=== PATIENT | female | born 1970 | race American Indian/Alaskan Native ===

== ENCOUNTER 2016-08-05 08:59 | Emergency (ER) | payer OTHER ==
[2016-08-05 09:43] VITALS: BP 148/89
--- NOTE | 2016-08-05 10:25 | Emergency Department Report ---
- General Chief Complaint: Upper Respiratory Infection Stated Complaint: SORE THROAT Time Seen by Provider: 08/05/16 10:21 Source: patient Mode of arrival: Ambulatory Limitations: No Limitations - History of Present Illness Initial Comments: 46-year-old female with a past medical history of diabetes comes in today for complaint of cold symptoms for about a week. Patient reports that it she's been dealing with nasal congestion now having sore throat in pain is going into her right ear. Patient states that her painful to swallow she denies any drooling she has been trying [id number] medicines such as [place] plus without any resolution. Patient is also requesting a refill on her glipizide 5 extended release 5 mg. Is currently on metformin 500 mg twice a day but has 1 refill left. Patient is currently looking for a primary care provider. - Related Data Previous Rx's Medication Instructions Recorded Last Taken Type glipiZIDE [glipiZIDE ER] 5 mg PO QAM #30 tab.er.24 05/27/16 Unknown Rx metFORMIN [Glucophage] 500 mg PO BID #60 tablet 05/27/16 Unknown Rx Cetirizine HCl [ZyrTEC] 10 mg PO QDAY #30 capsule 08/05/16 Unknown Rx Fluticasone [Flonase] 1 spray NS QDAY #1 bottle 08/05/16 Unknown Rx glipiZIDE [glipiZIDE ER] 5 mg PO QAM #30 tab.er.24 08/05/16 Unknown Rx Allergies Allergy/AdvReac Type Severity Reaction Status Date / Time codeine Allergy Nausea Verified 09/22/15 18:01 ED Review of Systems ROS: Stated complaint: SORE THROAT Other details as noted in HPI Constitutional: denies: chills, fever, weakness ENT: ear pain (right ear), throat pain, congestion (nasal) Respiratory: denies: cough, shortness of breath, wheezing Cardiovascular: denies: chest pain, palpitations ED Past Medical Hx - Past Medical History Hx Congestive Heart Failure: No Hx Diabetes: Yes Hx Sickle Cell Disease: No Hx Asthma: No Hx COPD: No - Surgical History Additional Surgical History: heart cath - Social History Smoking Status: Never Smoker Substance Use Type: None - Medications Home Medications: Home Medications Medication Instructions Recorded Confirmed Last Taken Type glipiZIDE [glipiZIDE ER] 5 mg PO QAM #30 tab.er.24 05/27/16 Unknown Rx metFORMIN [Glucophage] 500 mg PO BID #60 tablet 05/27/16 Unknown Rx Cetirizine HCl [ZyrTEC] 10 mg PO QDAY #30 capsule 08/05/16 Unknown Rx Fluticasone [Flonase] 1 spray NS QDAY #1 bottle 08/05/16 Unknown Rx glipiZIDE [glipiZIDE ER] 5 mg PO QAM #30 tab.er.24 08/05/16 Unknown Rx ED Physical Exam - General Limitations: No Limitations General appearance: alert, in no apparent distress - Head Head exam: Present: atraumatic, normocephalic - Eye Eye exam: Present: normal appearance - Expanded ENT Exam Expanded TM/Canal exam: Loss of Landmarks: Right TM (fluid behinf tm) Throat exam: Positive: normal inspection. Negative: tonsillar erythema, tonsillomegaly - Neck Neck exam: Present: normal inspection, full ROM. Absent: tenderness, lymphadenopathy - Respiratory Respiratory exam: Present: normal lung sounds bilaterally - Cardiovascular Cardiovascular Exam: Present: regular rate, normal rhythm, normal heart sounds ED Course Vital Signs 08/05/16 09:40 Temperature 97.8 F Pulse Rate 86 Respiratory 16 Rate Blood Pressure 148/89 O2 Sat by Pulse 100 Oximetry ED Medical Decision Making - Medical Decision Making Patient been evaluated by this provider in fast track. Based on physical examination which the patient for the URI. [id number] 1 spray to each nostril once a day. Discussed with patient that I will refill her Glipizide ER 5 mg qd. We will refer patient to outpatient clinic for further evaluation and management of her diabetes. Discussed with patient if her symptoms get worse if not improved in 3-4 days and return back to the ER for further evaluation patient verbalized understanding Critical care attestation.: If time is entered above; I have spent that time in minutes in the direct care of this critically ill patient, excluding procedure time. 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
== END 2016-08-05 10:43 | disposition home or self-care (01) ==
LOC: ED 08:59
DX: J09.X2 Influenza due to identified novel influenza A virus with other respiratory manifestations (principal); E11.9 Type 2 diabetes mellitus without complications; Z88.5 Allergy status to narcotic agent
CPT/HCPCS: 99282

== ENCOUNTER 2016-10-05 15:46 | Emergency (ER) | payer OTHER ==
[2016-10-05] MEDS ORDERED: MOTRIN PO ONE (22:14)
--- NOTE | 2016-10-05 22:14 | Emergency Department Report ---
ED Medical Clearance HPI - General Chief complaint: Medical Clearance Stated complaint: MED REFILLS Source: patient Mode of arrival: Ambulatory - History of Present Illness Initial comments: 46-year-old -[place] female coming in for just medication refills. Patient reports been out of her metformin and glipiZIDE last had a prescription from me this provider 08/05/2016. Patient reports she has now renewed her insurance and is now able to see a primary care provider but has not been able to get in to one as of yet. Patient reports that she did her Accu-Chek at home yesterday was approximately 250. She has no other concerns or complaints at this time Home medications: Previous Rx's Medication Instructions Recorded Last Taken Type glipiZIDE [glipiZIDE ER] 5 mg PO QAM #30 tab.er.24 05/27/16 Unknown Rx Cetirizine HCl [ZyrTEC] 10 mg PO QDAY #30 capsule 08/05/16 Unknown Rx Fluticasone [Flonase] 1 spray NS QDAY #1 bottle 08/05/16 Unknown Rx glipiZIDE [glipiZIDE ER] 5 mg PO QAM #60 tab.er.24 10/05/16 Unknown Rx metFORMIN [Glucophage] 500 mg PO BID #120 tablet 10/05/16 Unknown Rx Allergies/Adverse reactions: Allergies Allergy/AdvReac Type Severity Reaction Status Date / Time codeine Allergy Nausea Verified 09/22/15 18:01 ED Review of Systems ROS: Stated complaint: MED REFILLS Other details as noted in HPI Comment: All other systems reviewed and negative ED Past Medical Hx - Past Medical History Hx Congestive Heart Failure: No Hx Diabetes: Yes Hx Sickle Cell Disease: No Hx Asthma: No Hx COPD: No - Surgical History Additional Surgical History: heart cath - Social History Smoking Status: Never Smoker Substance Use Type: Alcohol - Medications Home Medications: Home Medications Medication Instructions Recorded Confirmed Last Taken Type glipiZIDE [glipiZIDE ER] 5 mg PO QAM #30 tab.er.24 05/27/16 Unknown Rx Cetirizine HCl [ZyrTEC] 10 mg PO QDAY #30 capsule 08/05/16 Unknown Rx Fluticasone [Flonase] 1 spray NS QDAY #1 bottle 08/05/16 Unknown Rx glipiZIDE [glipiZIDE ER] 5 mg PO QAM #60 tab.er.24 10/05/16 Unknown Rx metFORMIN [Glucophage] 500 mg PO BID #120 tablet 10/05/16 Unknown Rx ED Physical Exam - General Limitations: No Limitations General appearance: alert, in no apparent distress - Head Head exam: Present: atraumatic, normocephalic - Eye Eye exam: Present: normal appearance, PERRL Pupils: Present: normal accommodation - ENT ENT exam: Present: normal exam, mucous membranes moist - Respiratory Respiratory exam: Present: normal lung sounds bilaterally - Cardiovascular Cardiovascular Exam: Present: regular rate, normal rhythm, normal heart sounds - GI/Abdominal GI/Abdominal exam: Present: soft. Absent: distended, tenderness ED Course Vital Signs 10/05/16 16:23 Temperature 98.2 F Pulse Rate 91 H Respiratory 18 Rate Blood Pressure 140/90 O2 Sat by Pulse 100 Oximetry ED Medical Decision Making - Medical Decision Making Discussed with patient that we will refill her medication. We will give her 90 days. So she will have time to get into her primary care. Verbalized understanding ED Disposition Clinical Impression: Encounter for medication refill, Deficient knowledge of health care maintenance Diabetes mellitus type II, controlled Qualifiers: Diabetes mellitus complication status: without complication Disposition: DISCHARGED TO HOME OR SELFCARE Is pt being admited?: No Does the pt Need Aspirin: No Condition: Stable Additional Instructions: Very important for you to follow up with the primary care for chronic disease management. Referred her to a provider. Prescriptions: glipiZIDE [glipiZIDE ER] 5 mg PO QAM #60 tab.er.24 metFORMIN [Glucophage] 500 mg PO BID #120 tablet Referrals: PRIMARY CARE, [Primary Care Provider] - 3-5 Days [facility] [Provider Group] - 3-5 Days [facility] [Provider Group] - 3-5 Days Forms: Work/School Release Form(ED)
[2016-10-05] MEDS ORDERED: MOTRIN ONE (22:18)
[2016-10-06 00:11] VITALS: BP 132/86
== END 2016-10-05 22:25 | disposition home or self-care (01) ==
LOC: ED 15:46
DX: Z76.0 Encounter for issue of repeat prescription (principal); E11.9 Type 2 diabetes mellitus without complications; Z88.6 Allergy status to analgesic agent
CPT/HCPCS: 99282

== ENCOUNTER 2017-01-05 18:51 | Emergency (ER) | payer OTHER ==
[2017-01-05 19:40] VITALS: BP 158/97
--- NOTE | 2017-01-05 19:57 | Emergency Department Report ---
ED Recheck HPI - General Chief Complaint: Medical Clearance Stated Complaint: MED REFILLS Time Seen by Provider: 01/05/17 19:54 Source: patient Mode of arrival: Ambulatory Limitations: No Limitations - History of Present Illness Initial Comments: Patient here requesting a refill on her diabetic medications glipizide ER 5 mg every morning and Glucophage 500 mg by mouth twice a day. Patient says she doesn't have a primary care doctor and she comes to get a medication refill. She does sugar in triage was 148. She just got insurance told her I will refer her to outside [facility] because she needed to be followed by primary care physician for her diabetes. denies any urinary frequency and increased thirst. Complaint: medication refill request Onset/Timin -: days(s) Initial Visit For: other (here for med refill) Returns Today for: request for prescription Symptoms Since Prior Visit: no new symptoms Context: ran out of medication Associated Symptoms: none Treatments Prior to Arrival: other (na) - Related Data Previous Rx's Medication Instructions Recorded Last Taken Type Cetirizine HCl [ZyrTEC] 10 mg PO QDAY #30 capsule 08/05/16 Unknown Rx Fluticasone [Flonase] 1 spray NS QDAY #1 bottle 08/05/16 Unknown Rx glipiZIDE [glipiZIDE ER] 5 mg PO QAM #60 tab.er.24 10/05/16 Unknown Rx glipiZIDE [glipiZIDE ER] 5 mg PO QAM #30 tab.er.24 01/05/17 Unknown Rx metFORMIN [Glucophage] 500 mg PO BID #60 tablet 01/05/17 Unknown Rx Allergies Allergy/AdvReac Type Severity Reaction Status Date / Time codeine Allergy Nausea Verified 09/22/15 18:01 ED Review of Systems ROS: Stated complaint: MED REFILLS Other details as noted in HPI Comment: All other systems reviewed and negative Constitutional: no symptoms reported Eyes: denies: vision change Respiratory: no symptoms reported Cardiovascular: denies: chest pain, palpitations, edema, syncope Gastrointestinal: denies: abdominal pain, nausea, vomiting Genitourinary: denies: urgency, dysuria, frequency, hematuria, discharge Musculoskeletal: denies: back pain, joint swelling, arthralgia, myalgia Skin: denies: rash Neurological: denies: headache, weakness, numbness, paresthesias, confusion, abnormal gait, vertigo ED Past Medical Hx - Past Medical History Previous Medical History?: Yes Hx Congestive Heart Failure: No Hx Diabetes: Yes Hx Sickle Cell Disease: No Hx Asthma: No Hx COPD: No - Surgical History Past Surgical History?: Yes Additional Surgical History: heart cath - Family History Family history: diabetes, hypertension - Social History Smoking Status: Former Smoker Substance Use Type: None - Medications Home Medications: Home Medications Medication Instructions Recorded Confirmed Last Taken Type Cetirizine HCl [ZyrTEC] 10 mg PO QDAY #30 capsule 08/05/16 Unknown Rx Fluticasone [Flonase] 1 spray NS QDAY #1 bottle 08/05/16 Unknown Rx glipiZIDE [glipiZIDE ER] 5 mg PO QAM #60 tab.er.24 10/05/16 Unknown Rx glipiZIDE [glipiZIDE ER] 5 mg PO QAM #30 tab.er.24 01/05/17 Unknown Rx metFORMIN [Glucophage] 500 mg PO BID #60 tablet 01/05/17 Unknown Rx ED Physical Exam - General Limitations: No Limitations General appearance: alert, in no apparent distress - Head Head exam: Present: atraumatic, normocephalic, normal inspection - Eye Eye exam: Present: normal appearance, PERRL, EOMI Pupils: Present: normal accommodation - ENT ENT exam: Present: normal exam, normal orophraynx, mucous membranes moist - Neck Neck exam: Present: normal inspection, full ROM. Absent: tenderness, meningismus, lymphadenopathy - Respiratory Respiratory exam: Present: normal lung sounds bilaterally. Absent: respiratory distress, chest wall tenderness - Cardiovascular Cardiovascular Exam: Present: regular rate, normal rhythm, normal heart sounds - Extremities Exam Extremities exam: Present: normal inspection, full ROM, normal capillary refill. Absent: tenderness, pedal edema, joint swelling, calf tenderness - Neurological Exam Neurological exam: Present: alert, oriented X3, normal gait - Psychiatric Psychiatric exam: Present: normal affect, normal mood - Skin Skin exam: Present: warm, dry, intact, normal color. Absent: rash ED Course Vital Signs 01/05/17 19:36 Temperature 98.6 F Pulse Rate 70 Respiratory 18 Rate Blood Pressure 158/97 O2 Sat by Pulse 100 Oximetry - Reevaluation(s) Reevaluation #1: 01/05/17 20:08 Patient stable ED Recheck MDM - Medical Decision Making ED course: Patient here for medication refill on her diabetic medication. She has been coming here for refill medication does not have a primary care doctor and now she just got insurance she would like to be referred to one. Discussed with her that for her to [facility] and she is to call to schedule an appointment in the morning for new patient's physical and lab work to include hemoglobin A1c. I discussed with patient that she needs to have a primary care physician at [facility] to monitor her chronic medical problem. Patient is asymptomatic and her blood sugar in triage was 168. Medication refill for glipizide ER 5 mg every morning and Glucophage 500 mg by mouth twice a day. Critical care attestation.: If time is entered above; I have spent that time in minutes in the direct care of this critically ill patient, excluding procedure time. ED Disposition Clinical Impression: Encounter for medication refill Disposition: DC-01 TO HOME OR SELFCARE Is pt being admited?: No Does the pt Need Aspirin: No Condition: Stable Instructions: Diabetes Mellitus Type 2 in Adults (ED) Additional Instructions: Please increase water intake and to help to keep her blood sugar down. Please follow up with [facility] and discussed for primary care visit. Take medication as prescribed Prescriptions: glipiZIDE [glipiZIDE ER] 5 mg PO QAM #30 tab.er.24 metFORMIN [Glucophage] 500 mg PO BID #60 tablet Referrals: [facility] [Outside] - 2-3 Days Forms: Accompanied Note, Work/School Release Form(ED)
== END 2017-01-05 20:42 | disposition home or self-care (01) ==
LOC: ED 18:51
DX: Z76.0 Encounter for issue of repeat prescription (principal); E11.9 Type 2 diabetes mellitus without complications; Z87.891 Personal history of nicotine dependence; Z88.5 Allergy status to narcotic agent
CPT/HCPCS: 82962; 99282

== ENCOUNTER 2017-01-14 19:28 | Emergency (ER) | payer OTHER ==
[2017-01-14] MEDS ORDERED: TRIMOX PO ONE (23:01)
[2017-01-14] MEDS ORDERED: SUDAFED 12 HR PO PRN (23:01)
--- NOTE | 2017-01-14 23:17 | Emergency Department Report ---
HPI - General Chief Complaint: Headache Time Seen by Provider: 01/14/17 22:30 - HPI HPI: Patient is 46-year-old female presents to ED complaining of right-sided ear pain and headache times last night. Patient states she started experiencing some right-sided popping training type sound in the ears. Patient states she has some referred right-sided headache. She describes headache as aching and throbbing in nature about a 6 out of 10 in intensity. She denies fevers/chills/nausea/vomiting/abdominal pain/chest pain or shortness of breath/dizziness or blurred vision. ED Past Medical Hx - Past Medical History Previous Medical History?: Yes Hx Congestive Heart Failure: No Hx Diabetes: Yes Hx Sickle Cell Disease: No Hx Asthma: No Hx COPD: No - Surgical History Past Surgical History?: Yes Additional Surgical History: heart cath - Social History Smoking Status: Never Smoker Substance Use Type: Alcohol - Medications Home Medications: Home Medications Medication Instructions Recorded Confirmed Last Taken Type glipiZIDE [glipiZIDE ER] 5 mg PO QAM #60 tab.er.24 10/05/16 Unknown Rx glipiZIDE [glipiZIDE ER] 5 mg PO QAM #30 tab.er.24 01/05/17 Unknown Rx metFORMIN [Glucophage] 500 mg PO BID #60 tablet 01/05/17 Unknown Rx Amoxicillin [Trimox CAP] 500 mg PO BID #14 capsule 01/14/17 Unknown Rx Cetirizine HCl [ZyrTEC] 10 mg PO QDAY #30 capsule 01/14/17 Unknown Rx Fluticasone [Flonase] 1 spray NS QDAY #1 bottle 01/14/17 Unknown Rx ED Review of Systems ROS: Stated complaint: HEADACHE Other details as noted in HPI Constitutional: denies: chills, fever Eyes: denies: eye pain, eye discharge, vision change ENT: ear pain. denies: throat pain, dental pain, hearing loss Respiratory: denies: cough, shortness of breath, wheezing Cardiovascular: denies: chest pain, palpitations Endocrine: no symptoms reported Gastrointestinal: denies: abdominal pain, nausea, vomiting, diarrhea Genitourinary: denies: urgency, dysuria, discharge Musculoskeletal: denies: back pain, joint swelling, arthralgia Skin: denies: rash, lesions Neurological: headache. denies: weakness, numbness, paresthesias, confusion Psychiatric: denies: anxiety, depression Hematological/Lymphatic: denies: easy bleeding, easy bruising Physical Exam - Physical Exam Vital Signs: Vital Signs 01/14/17 19:33 Temperature 98.2 F Pulse Rate 88 Respiratory 16 Rate Blood Pressure 153/99 O2 Sat by Pulse 100 Oximetry Physical Exam: GENERAL: Alert and oriented x3, no apparent distress, Normal Gait, atraumatic. HEAD: Head is normocephalic and a-traumatic. EYES: Extra ocular muscles are intact. Pupils are equal, round, and reactive to light and accommodation. EARS: symetrical, atraumatic, non tender, ear canal clear and moderate cerumen, tympanic membrance non inflamed. Serous fluid behind the right tympanic membrane, maxillary sinuses tender to palpation, gross auditory nml bilaterally. NOSE: Nose symetrical, Nontender,Nares appeared normal. MOUTH:Mouth is well hydrated and without lesions. Tonsils nonerythematous or swollen, Uvula midline, Tongue not elevated. Mucous membranes are moist. Posterior pharynx clear, no exudate or lesions. Patent airways.. Maxillary sinus tenderness NECK: Supple. Non edematous, No carotid bruits. No lymphadenopathy or thyromegaly. No C-spine tenderness LUNGS: Symetrical with respiration, No wheezing, no rales or crackles, CTAB. HEART: S1, S2 present, regular rate and rhythm without murmur, no rubs, no gallops. Non tender to palpation NEUROLOGIC: The patient is cooperative with no focal neurologic deficits. Cranial nerves II through XII are grossly intact. Normal speech. SKIN: Warm and dry, No lesions, No ulceration or induration present. ED Course Vital Signs 01/14/17 19:33 Temperature 98.2 F Pulse Rate 88 Respiratory 16 Rate Blood Pressure 153/99 O2 Sat by Pulse 100 Oximetry ED Medical Decision Making - Medical Decision Making 46-year-old female presents with sinus infection, ED course: Patient received pseudoephedrine and amoxicillin Discussed with patient symptomatic relief as well as taking medication as prescribed Discussed the follow-up primary care physician. Discussed the patient's symptoms worsen to return to ED. Vital signs are normal patient is in no acute distress She is neurologically intact, alert and oriented 3, with discharge instructions given Critical care attestation.: If time is entered above; I have spent that time in minutes in the direct care of this critically ill patient, excluding procedure time. ED Disposition Clinical Impression: Sinusitis, acute, maxillary Qualifiers: Recurrence: recurrent Qualified Code(s): J01.01 - Acute recurrent maxillary sinusitis Disposition: TO HOME OR SELFCARE Is pt being admited?: No Does the pt Need Aspirin: No Condition: Stable Instructions: Sinusitis (ED) Prescriptions: Amoxicillin [Trimox CAP] 500 mg PO BID #14 capsule Cetirizine HCl [ZyrTEC] 10 mg PO QDAY #30 capsule Fluticasone [Flonase] 1 spray NS QDAY #1 bottle Referrals: PRIMARY CARE, [Primary Care Provider] - 3-5 Days [facility] [Outside] - 3-5 Days [facility] [Outside] - 3-5 Days Forms: Accompanied Note, Work/School Release Form(ED) Time of Disposition: 23:23
[2017-01-14 23:39] VITALS: BP 163/86
== END 2017-01-14 23:40 | disposition home or self-care (01) ==
LOC: ED 19:28
DX: J01.01 Acute recurrent maxillary sinusitis (principal); E11.9 Type 2 diabetes mellitus without complications
CPT/HCPCS: 99282

== ENCOUNTER 2017-05-02 16:11 | Emergency (ER) | payer SELFPAY ==
--- NOTE | 2017-05-02 22:00 | Emergency Department Report ---
HPI - General Chief Complaint: Medical Clearance Time Seen by Provider: 05/02/17 21:05 - HPI HPI: 46-year-old female presents today requesting a medication refill for her glipizide and metformin. Patient denies any other medical complaints. She states that she has been out of her glipizide 1 week and her last dose of metformin was this morning. Patient states that at time of arrival she did have a eduardo lucia, explaining her elevated blood glucose levels. Patient denies fever, chills, nausea, vomiting, chest pain, shortness of breath, abdominal pain, urinary symptoms. ED Past Medical Hx - Past Medical History Hx Congestive Heart Failure: No Hx Diabetes: Yes Hx Sickle Cell Disease: No Hx Asthma: No Hx COPD: No - Surgical History Additional Surgical History: heart cath - Social History Smoking Status: Never Smoker Substance Use Type: Alcohol - Medications Home Medications: Home Medications Medication Instructions Recorded Confirmed Last Taken Type glipiZIDE [glipiZIDE ER] 5 mg PO QAM #30 tab.er.24 01/05/17 Unknown Rx Amoxicillin [Trimox CAP] 500 mg PO BID #14 capsule 01/14/17 Unknown Rx Cetirizine HCl [ZyrTEC] 10 mg PO QDAY #30 capsule 01/14/17 Unknown Rx Fluticasone [Flonase] 1 spray NS QDAY #1 bottle 01/14/17 Unknown Rx glipiZIDE [glipiZIDE ER] 5 mg PO QAM #60 tab.er.24 05/02/17 Unknown Rx metFORMIN [Glucophage] 500 mg PO BID #120 tablet 05/02/17 Unknown Rx ED Review of Systems ROS: Stated complaint: BLOOD SUGAR HIGH, REFILL ON MEDS Other details as noted in HPI Constitutional: denies: chills, fever, malaise Eyes: denies: eye pain ENT: denies: ear pain, throat pain, congestion Respiratory: denies: cough, shortness of breath, wheezing Cardiovascular: denies: chest pain, palpitations Endocrine: no symptoms reported Gastrointestinal: denies: abdominal pain, nausea, vomiting Genitourinary: denies: urgency, dysuria, frequency, hematuria Skin: denies: rash Neurological: denies: headache, weakness, numbness, paresthesias Psychiatric: denies: anxiety, depression Physical Exam - Physical Exam Vital Signs: Vital Signs 05/02/17 17:41 Temperature 98 F Pulse Rate 82 Respiratory 16 Rate Blood Pressure 128/86 O2 Sat by Pulse 100 Oximetry Physical Exam: GENERAL: The patient is well-developed and well-nourished. Patient is in NAD. HEAD: Normocephalic. Atraumatic. NECK: Supple, nontender, without lymphadenopathy. No meningitic signs are noted. CHEST/LUNGS: Clear to auscultation throughout. HEART/CARDIOVASCULAR: Regular rate and rhythm. No murmurs, rubs or gallops. ABDOMEN: Abdomen is soft, nontender. Bowel sounds normoactive. No guarding or rebound tenderness. EXTREMITIES: No cyanosis, clubbing or edema. Peripheral pulses intact. Capillary refill less than 2 seconds. NEURO: Alert and oriented x 3. Normal gait. ED Course Vital Signs 05/02/17 17:41 Temperature 98 F Pulse Rate 82 Respiratory 16 Rate Blood Pressure 128/86 O2 Sat by Pulse 100 Oximetry ED Medical Decision Making - Lab Data Vital Signs 05/02/17 05/02/17 17:41 22:18 Temperature 98 F Pulse Rate 82 81 Respiratory 16 18 Rate Blood Pressure 128/86 142/90 O2 Sat by Pulse 100 100 Oximetry Lab Results 05/02/17 05/02/17 Range/Units 17:42 20:56 POC Glucose 363 H 274 H (70-105) - Medical Decision Making 46-year-old female presents today for a medication refill. Consulted with Dr. Taylor, who advised patient's medication refilled and for patient to follow up with her primary care provider. Patient is in no acute distress at this time. She will be discharged home and is encouraged to follow up with a primary care provider. She will be sent home on glipizide and metformin and is encouraged to return to the emergency room for any worsening symptoms. Critical care attestation.: If time is entered above; I have spent that time in minutes in the direct care of this critically ill patient, excluding procedure time. ED Disposition Clinical Impression: Medication refill Diabetes mellitus type II, controlled Qualifiers: Diabetes mellitus complication status: without complication Diabetes mellitus usp insulin use: without usp use Qualified Code(s): E11.9 - Type 2 diabetes mellitus without complications Disposition: TO HOME OR SELFCARE Is pt being admited?: No Does the pt Need Aspirin: No Condition: Stable Instructions: Diabetes Mellitus Type 2 in Adults (ED) Additional Instructions: Take medications as prescribed. Keep a blood glucose level record for reference. Follow-up with primary care provider. Return to the emergency department if symptoms worsen. Prescriptions: glipiZIDE [glipiZIDE ER] 5 mg PO QAM #60 tab.er.24 metFORMIN [Glucophage] 500 mg PO BID #120 tablet Referrals: PRIMARY CAREMD [Primary Care Provider] - 3-5 Days [facility] [Outside] - 3-5 Days PERLA LIN MD [Staff Physician] - 3-5 Days Forms: Accompanied Note, Work/School Release Form(ED) Time of Disposition: 22:00
[2017-05-02 22:39] VITALS: BP 142/90
== END 2017-05-02 22:58 | disposition home or self-care (01) ==
LOC: ED 16:11
DX: Z76.0 Encounter for issue of repeat prescription (principal); E11.9 Type 2 diabetes mellitus without complications
CPT/HCPCS: 82962; 99282

== ENCOUNTER 2017-10-01 17:21 | Emergency (ER) | payer OTHER ==
[2017-10-01 21:47] LABS: Bacteria,Urine 3+ /HPF (Negative); Bilirubin,Urine NEG (Negative); Blood,Urine SM (Negative); Color,Urine Yellow (Yellow); Protein,Urine <15 mg/dL mg/dL (Negative); Urobilinogen,Urine < 2.0 mg/dL (<2.0)
[2017-10-01 21:57] LABS: HCG Qualitative,Urine Negative (Negative)
--- NOTE | 2017-10-01 22:53 | Emergency Department Report ---
HPI - General Chief Complaint: Urogenital-Female Time Seen by Provider: 10/01/17 22:49 - HPI HPI: 47-year-old diabetic comes in reporting she ran out of her medicine for the last 2 days. Patient reports that she's been using the emergency room as her primary care provider. Patient also reports vaginal itching. Patient reports her last blood sugar at home was 277 blood sugar today fast track was 242. Patient reports that she is on metformin and glipizide. ED Past Medical Hx - Past Medical History Hx Congestive Heart Failure: No Hx Diabetes: Yes Hx Sickle Cell Disease: No Hx Asthma: No Hx COPD: No - Surgical History Additional Surgical History: heart cath - Social History Smoking Status: Never Smoker Substance Use Type: None - Medications Home Medications: Home Medications Medication Instructions Recorded Confirmed Last Taken Type glipiZIDE [glipiZIDE ER] 5 mg PO QAM #30 tab.er.24 01/05/17 Unknown Rx Amoxicillin [Trimox CAP] 500 mg PO BID #14 capsule 01/14/17 Unknown Rx Cetirizine HCl [ZyrTEC] 10 mg PO QDAY #30 capsule 01/14/17 Unknown Rx Fluticasone [Flonase] 1 spray NS QDAY #1 bottle 01/14/17 Unknown Rx Fluconazole [Diflucan TAB] 150 mg PO ONCE #1 tablet 10/01/17 Unknown Rx Nitrofurantoin Monohyd/M-Cryst 100 mg PO BID #20 capsule 10/01/17 Unknown Rx [Macrobid 100 mg Capsule] glipiZIDE [glipiZIDE ER] 5 mg PO QAM #15 tab.er.24 10/01/17 Unknown Rx metFORMIN [Glucophage] 500 mg PO BID #30 tablet 10/01/17 Unknown Rx ED Review of Systems ROS: Stated complaint: MED REFILL/BLOOD SUGAR HIGH Other details as noted in HPI Constitutional: denies: chills, fever Eyes: denies: eye pain, eye discharge, vision change ENT: denies: ear pain, throat pain Respiratory: denies: cough, shortness of breath, wheezing Cardiovascular: denies: chest pain, palpitations Endocrine: no symptoms reported Gastrointestinal: denies: abdominal pain, nausea, diarrhea Genitourinary: other (vaginal irritation). denies: urgency, dysuria, discharge Musculoskeletal: denies: back pain, joint swelling, arthralgia Skin: denies: rash, lesions Neurological: denies: headache, weakness, paresthesias Psychiatric: denies: anxiety, depression Hematological/Lymphatic: denies: easy bleeding, easy bruising Physical Exam - Physical Exam Vital Signs: Vital Signs 10/01/17 19:25 Temperature 97.6 F Pulse Rate 84 Respiratory 18 Rate Blood Pressure 161/95 O2 Sat by Pulse 99 Oximetry General: GENERAL: Alert and oriented x3, no apparent distress, Normal Gait, atraumatic. HEAD: Head is normocephalic and a-traumatic. EYES: Extra ocular muscles are intact. Pupils are equal, round, and reactive to light and accommodation. MOUTH:Mouth is well hydrated and without lesions. Tonsils nonerythematous or swollen, Uvula midline, Tongue not elevated. Mucous membranes are moist. Patent airways. EXTREMITIES/MUSCULOSKELETAL: No cyanosis, clubbing, rash, lesions or edema. Full ROM bilaterally. UE/LE Pulses 2+ bilaterally. LE and UE 5+ strength bilaterally NEUROLOGIC: No focal Deficit, Cranial nerves II through XII are grossly intact. No loss of sensation, No facial droop, Negative rhomberg. PSYCHIATRIC: Mood is congruent with affect, denies suicidal or homicidal ideations. SKIN: Warm and dry, No lesions, No ulceration or induration present ED Course Vital Signs 10/01/17 19:25 Temperature 97.6 F Pulse Rate 84 Respiratory 18 Rate Blood Pressure 161/95 O2 Sat by Pulse 99 Oximetry ED Medical Decision Making - Medical Decision Making Patient's been evaluated by this provider fast track. I discussed the patient that the emergency room is not a proper place for primary care. Also discussed the patient that the vaginal irritation I will treated with Diflucan. Review of her labs so that she has a urinary tract infection so I will treat her for that as well. Discussed the patient only give her 2 weeks' worth of medication she needs to follow-up with [facility]. Patient verbalized understanding. Critical care attestation.: If time is entered above; I have spent that time in minutes in the direct care of this critically ill patient, excluding procedure time. ED Disposition Clinical Impression: Diabetes 1.5, managed as type 2 UTI (urinary tract infection) Qualifiers: Urinary tract infection type: site unspecified Hematuria presence: without hematuria Qualified Code(s): N39.0 - Urinary tract infection, site not specified Disposition: TO HOME OR SELFCARE Is pt being admited?: No Does the pt Need Aspirin: No Condition: Stable Instructions: Diabetes Mellitus Type 2 in Adults (ED), Urinary Tract Infection in Women (ED) Additional Instructions: Please take medication as prescribed. It's very importantly to follow up with her primary care provider. They're certain testing needs to be done to be sure that your diabetes is managed properly. I haven referred you to [facility]. Prescriptions: Fluconazole [Diflucan TAB] 150 mg PO ONCE #1 tablet glipiZIDE [glipiZIDE ER] 5 mg PO QAM #15 tab.er.24 metFORMIN [Glucophage] 500 mg PO BID #30 tablet Nitrofurantoin Monohyd/M-Cryst [Macrobid 100 mg Capsule] 100 mg PO BID #20 capsule Referrals: ALEXYS MARTIN MD [Primary Care Provider] - 3-5 Days [facility] [Provider Group] - 3-5 Days [facility] [Provider Group] - 3-5 Days
[2017-10-01 23:11] VITALS: BP 147/92
== END 2017-10-01 23:08 | disposition home or self-care (01) ==
LOC: ED 17:21
DX: E11.9 Type 2 diabetes mellitus without complications (principal); N39.0 Urinary tract infection, site not specified
CPT/HCPCS: 81001; 81025; 82962; 87086; 99283

== ENCOUNTER 2017-11-28 10:39 | Inpatient (IN) | payer SELFPAY ==
[2017-11-28] MEDS ORDERED: NACL 0.9% 500 ML 500 ML IV ONE ×2 (10:43→10:51)
[2017-11-28] MEDS ORDERED: NACL 0.9% 1000 ML IV ONE (11:08)
[2017-11-28 11:12] LABS: Hematocrit 39.6 % (30.3-42.9); Hemoglobin 13.1 gm/dl (10.1-14.3); Mean Corpuscular HGB Conc 33 % (30-34); Mean Corpuscular Hemoglobin 28 pg (28-32); Mean Corpuscular Volume 86 fl (79-97); Platelet Count 300 K/mm3 (140-440); Red Blood Count 4.63 M/mm3 (3.65-5.03); Red Cell Distribution Width 12.9 % (13.2-15.2)
--- NOTE | 2017-11-28 11:13 | XRay Report ---
PORTABLE CHEST INDICATION: Possible sepsis. COMPARISON: 01/11/2014 FINDINGS: Portable, frontal chest radiograph demonstrates normal cardiomediastinal silhouette. Slight nonspecific prominence of lung markings centrally. No dense focal consolidation, pleural effusions or CHF. Intact bones. CONCLUSION: No acute significant chest process, as described. Thank you for the opportunity to participate in this patient's care. Possible sepsis.
[2017-11-28 11:22] LABS: INR 0.91 (0.87-1.13)
[2017-11-28 11:26] LABS: Alanine Aminotransferase 10 units/L (7-56); Albumin 4.1 g/dL (3.9-5); BUN/Creatinine Ratio 16; Blood Urea Nitrogen 8 mg/dL (7-17); Calcium 9.3 mg/dL (8.4-10.2); Hemolysis Index 0
--- NOTE | 2017-11-28 11:35 | Emergency Department Report ---
ED Fever HPI - General Chief Complaint: Fever Stated Complaint: ABD PAIN Time Seen by Provider: 11/28/17 11:07 Source: patient Exam Limitations: no limitations - History of Present Illness Timing/Duration: this morning Fever Severity/Quality: greater than 100.5 F Fever Therapy CERTIFIED PHARMACIST ASSISTANT: none Associated Symptoms: abdominal pain, nausea/vomiting. denies: shortness of breath ED Review of Systems ROS: Stated complaint: ABD PAIN Other details as noted in HPI Comment: All other systems reviewed and negative Constitutional: chills, fever Eyes: denies: vision change ENT: denies: ear pain Respiratory: denies: cough, shortness of breath Cardiovascular: denies: chest pain, palpitations Endocrine: no symptoms reported Gastrointestinal: abdominal pain, nausea, vomiting, constipation. denies: diarrhea Genitourinary: urgency, dysuria, frequency, hematuria Musculoskeletal: denies: back pain, joint swelling Skin: denies: rash, change in color Neurological: denies: headache, weakness, numbness Psychiatric: suicidal thoughts Hematological/Lymphatic: denies: easy bleeding, easy bruising ED Past Medical Hx - Past Medical History Hx Congestive Heart Failure: No Hx Diabetes: Yes Hx Sickle Cell Disease: No Hx Asthma: No Hx COPD: No - Surgical History Additional Surgical History: heart cath - Social History Smoking Status: Never Smoker Substance Use Type: None - Medications Home Medications: Home Medications Medication Instructions Recorded Confirmed Last Taken Type glipiZIDE [glipiZIDE ER] 5 mg PO QAM #30 tab.er.24 01/05/17 Unknown Rx Amoxicillin [Trimox CAP] 500 mg PO BID #14 capsule 01/14/17 Unknown Rx Cetirizine HCl [ZyrTEC] 10 mg PO QDAY #30 capsule 01/14/17 Unknown Rx Fluticasone [Flonase] 1 spray NS QDAY #1 bottle 01/14/17 Unknown Rx Fluconazole [Diflucan TAB] 150 mg PO ONCE #1 tablet 10/01/17 Unknown Rx Nitrofurantoin Monohyd/M-Cryst 100 mg PO BID #20 capsule 10/01/17 Unknown Rx [Macrobid 100 mg Capsule] glipiZIDE [glipiZIDE ER] 5 mg PO QAM #15 tab.er.24 10/01/17 Unknown Rx metFORMIN [Glucophage] 500 mg PO BID #30 tablet 10/01/17 Unknown Rx ED Physical Exam - General Limitations: No Limitations General appearance: alert, in no apparent distress - Head Head exam: Present: atraumatic, normocephalic, normal inspection - Eye Eye exam: Present: normal appearance, PERRL, EOMI Pupils: Present: normal accommodation - ENT ENT exam: Present: normal exam, normal orophraynx, mucous membranes moist - Neck Neck exam: Present: normal inspection, full ROM. Absent: tenderness, meningismus - Respiratory Respiratory exam: Present: normal lung sounds bilaterally, respiratory distress. Absent: wheezes, rhonchi - Cardiovascular Cardiovascular Exam: Present: normal rhythm, normal heart sounds - GI/Abdominal GI/Abdominal exam: Present: soft, tenderness (Right CVA Tenderness.), normal bowel sounds. Absent: guarding, rebound - Extremities Exam Extremities exam: Present: normal inspection, full ROM, normal capillary refill - Back Exam Back exam: Present: normal inspection, full ROM. Absent: tenderness - Neurological Exam Neurological exam: Present: alert, oriented X3, CN II-XII intact - Psychiatric Psychiatric exam: Present: normal affect, normal mood - Skin Skin exam: Present: warm, dry, intact, normal color ED Course Vital Signs 11/28/17 11/28/17 11/28/17 10:41 11:21 11:29 Temperature 101.2 F H 101.1 F H Pulse Rate 147 H 136 H Respiratory 18 Rate Blood Pressure 140/81 Blood Pressure 133/62 [Right] O2 Sat by Pulse 100 98 98 Oximetry 11/28/17 11/28/17 11/28/17 11:30 11:46 11:51 Temperature Pulse Rate 132 H 118 H Respiratory 19 16 18 Rate Blood Pressure 133/62 133/62 Blood Pressure [Right] O2 Sat by Pulse 96 99 Oximetry 11/28/17 11/28/17 11/28/17 12:00 12:23 12:30 Temperature Pulse Rate 114 H 116 H 118 H Respiratory 19 18 Rate Blood Pressure 116/78 116/78 116/78 Blood Pressure [Right] O2 Sat by Pulse 97 98 Oximetry 11/28/17 11/28/17 11/28/17 12:46 13:00 13:16 Temperature Pulse Rate 109 H 105 H 108 H Respiratory 19 23 16 Rate Blood Pressure 116/78 113/76 113/76 Blood Pressure [Right] O2 Sat by Pulse 97 98 97 Oximetry 11/28/17 11/28/1718 13:17 13:30 13:46 Temperature Pulse Rate 109 H 110 H Respiratory 18 20 24 Rate Blood Pressure 113/76 113/76 Blood Pressure [Right] O2 Sat by Pulse 99 95 Oximetry - Reevaluation(s) Reevaluation #1: 11/28/17 16:25 Patient was discussed by Dr. mackay on-call Dr. gomez. Will admit patient for further evaluation and management. ED Medical Decision Making - Lab Data Result diagrams: 11/28/17 10:46 11/28/17 10:46 - Radiology Data Radiology results: report reviewed, image reviewed - Medical Decision Making Fever. Sepsis. UTI. Abdominal pain Critical care attestation.: If time is entered above; I have spent that time in minutes in the direct care of this critically ill patient, excluding procedure time. ED Disposition Clinical Impression: Pyelonephritis UTI (urinary tract infection) Qualifiers: Urinary tract infection type: acute pyelonephritis Qualified Code(s): N10 - Acute pyelonephritis Sepsis Qualifiers: Sepsis type: sepsis due to unspecified organism Qualified Code(s): A41.9 - Sepsis, unspecified organism Fever Qualifiers: Fever type: unspecified Qualified Code(s): R50.9 - Fever, unspecified Abdominal pain Qualifiers: Abdominal location: right upper quadrant Qualified Code(s): R10.11 - Right upper quadrant pain Disposition: OP ADMIT IP TO THIS HOSP Is pt being admited?: Yes Does the pt Need Aspirin: No Condition: Stable Referrals: PRIMARY CARE, [Primary Care Provider] - 3-5 Days Time of Disposition: 15:02
[2017-11-28] MEDS ORDERED: ROCEPHIN/NS 2 GM/100 ML 2 GM/100 ML BAG IV ONE (11:40)
[2017-11-28] MEDS ORDERED: TYLENOL PO ONE (11:42)
[2017-11-28 11:47] LABS: Band Neutrophils # (Manual) 0.4 K/mm3; Basophils % (Manual) 0 % (0.0-1.8); Eosinophils % (Manual) 0 % (0.0-4.3); Total Cells Counted 100
[2017-11-28 11:48] LABS: Anisocytosis 1+; Ovalocytes Few; Platelet Estimate Cons; Poikilocytosis 1+
[2017-11-28] MEDS ORDERED: SUBLIMAZE IV ONE (12:00)
[2017-11-28] MEDS ORDERED: cefTRIAXone 2 GM in NACL 0.9% 20 ML IV ONE (12:00)
[2017-11-28] MEDS ORDERED: LEVAQUIN 750MG/150ML 750 MG/150 ML BAG IV SCH (12:00)
[2017-11-28 12:02] LABS: Bacteria,Urine 2+ /HPF (Negative); Bilirubin,Urine NEG (Negative); Blood,Urine LG (Negative); Color,Urine Yellow (Yellow); Urobilinogen,Urine < 2.0 mg/dL (<2.0); WBC,Urine > 182.0 /HPF (0.0-6.0)
[2017-11-28 12:03] LABS: HCG Qualitative,Urine Negative (Negative)
--- NOTE | 2017-11-28 14:53 | Cat Scan Report ---
FINAL REPORT EXAM: CT ABDOMEN PELVIS W CON HISTORY: abdominal pain TECHNIQUE: CT abdomen and pelvis performed. Images extend from diaphragm to pubic symphysis. Images were obtained after the administration of IV contrast. Oral contrast was administered. Axial images and coronal and sagittal reformatted images were obtained. PRIORS: None. FINDINGS: The visualized liver, spleen, pancreas, adrenal glands and left kidney demonstrate no significant abnormalities. There is some mild infiltration around the right kidney and in the right renal hilum. There is no hydronephrosis. Findings could represent upper urinary tract infection/pyelonephritis. Correlate clinically. There are no calcified gallstones seen. There is no abdominal aortic aneurysm. There is no evidence of intestinal obstruction. The appendix is normal. There are no abnormal fluid collections seen. There is no free intraperitoneal air. The bladder is unremarkable. There is no abnormal pelvic mass or collection seen. IMPRESSION: There is some mild infiltration around the right kidney and in the right renal hilum. This could reflect upper urinary tract infection/pyelonephritis. Correlate clinically.
[2017-11-28] MEDS ORDERED: ZOFRAN IV PRN (23:34)
[2017-11-28] MEDS ORDERED: PERCOCET 5/325 PO PRN (23:34)
[2017-11-28] MEDS ORDERED: AMBIEN PO PRN (23:34)
--- NOTE | 2017-11-28 23:42 | History and Physical Report ---
History of Present Illness Date of examination: 11/28/17 Date of admission: 11/28/17 16:26 Chief complaint: Chief complaint: Fever of 1 day duration Dysuria 1 day duration History of present illness: History of Present Illness: 47-year-old -[place] female with history of diabetes comes in for fever since one day. Fever of 100.5. Patient also has dysuria and some flank pain. Fever chills present. No shortness of breath present. Generalized weakness present. Abdominal pain especially right flank 5/10. Past Medical History Hx Congestive Heart Failure: No Hx Diabetes: Yes Hx Sickle Cell Disease: No Hx Asthma: No Hx COPD: No - Surgical History Additional Surgical History: heart cath - Social History Smoking Status: Never Smoker Substance Use Type: None - Medications Home Medications: Home Medications Medication Instructions Recorded Confirmed Last Taken Type glipiZIDE [glipiZIDE ER] 5 mg PO QAM #30 tab.er.24 01/05/17 Unknown Rx Amoxicillin [Trimox CAP] 500 mg PO BID #14 capsule 01/14/17 Unknown Rx Cetirizine HCl [ZyrTEC] 10 mg PO QDAY #30 capsule 01/14/17 Unknown Rx Fluticasone [Flonase] 1 spray NS QDAY #1 bottle 01/14/17 Unknown Rx Fluconazole [Diflucan TAB] 150 mg PO ONCE #1 tablet 10/01/17 Unknown Rx Nitrofurantoin Monohyd/M-Cryst 100 mg PO BID #20 capsule 10/01/17 Unknown Rx [Macrobid 100 mg Capsule] glipiZIDE [glipiZIDE ER] 5 mg PO QAM #15 tab.er.24 10/01/17 Unknown Rx metFORMIN [Glucophage] 500 mg PO BID #30 tablet 10/01/17 Unknown Rx Review of Systems ROS: Stated complaint: ABD PAIN Other details as noted in HPI Comment: All other systems reviewed and negative Constitutional: chills, fever Eyes: denies: vision change ENT: denies: ear pain Respiratory: denies: cough, shortness of breath Cardiovascular: denies: chest pain, palpitations Endocrine: no symptoms reported Gastrointestinal: abdominal pain, nausea, vomiting, constipation. denies: diarrhea Genitourinary: urgency, dysuria, frequency, hematuria Musculoskeletal: denies: back pain, joint swelling Skin: denies: rash, change in color Neurological: denies: headache, weakness, numbness Psychiatric: suicidal thoughts Hematological/Lymphatic: denies: easy bleeding, easy bruising Medications and Allergies Allergies Allergy/AdvReac Type Severity Reaction Status Date / Time codeine Allergy Nausea Verified 09/22/15 18:01 Home Medications Medication Instructions Recorded Confirmed Last Taken Type glipiZIDE [glipiZIDE ER] 5 mg PO QAM #15 tab.er.24 10/01/17 11/28/17 Unknown Rx metFORMIN [Glucophage] 1,000 mg PO BID 11/28/17 11/28/17 Unknown History Active Meds: Active Medications Acetaminophen (Tylenol) 650 mg PO Q4H PRN PRN Reason: Pain MILD(1-3)/Fever >100.5/LARIOS Glipizide (Glucotrol Xl) 5 mg PO QAM YONATAN Levofloxacin/Dextrose (Levaquin 750mg/150ml) 750 mg in 150 mls @ 100 mls/hr IV Q24HR YONATAN; Protocol Last Infusion: 11/28/17 13:52 Dose: Infused Ceftriaxone Sodium (Rocephin/Ns 2 Gm/100 Ml) 2 gm in 100 mls @ 200 mls/hr IV Q24HR YONATAN; Protocol Sodium Chloride (Nacl 0.9% 1000 Ml) 1,000 mls @ 75 mls/hr IV DIRECT YONATAN Metformin HCl (Glucophage) 1,000 mg PO BID YONATAN Morphine Sulfate (Morphine) 2 mg IV Q4H PRN PRN Reason: Pain, Moderate (4-6) Ondansetron HCl (Zofran) 4 mg IV Q8H PRN PRN Reason: Nausea And Vomiting Oxycodone/Acetaminophen (Percocet 5/325) 1 tab PO Q6H PRN PRN Reason: Pain, Moderate (4-6) Sodium Chloride (Sodium Chloride Flush Syringe 10 Ml) 10 ml IV BID YONATAN Sodium Chloride (Sodium Chloride Flush Syringe 10 Ml) 10 ml IV PRN PRN PRN Reason: LINE FLUSH Zolpidem Tartrate (Ambien) 5 mg PO QHS PRN PRN Reason: Insomnia Exam - Physical Exam Narrative exam: Lying in bed in some discomfort - Constitutional Vitals: Temp Pulse Resp BP Pulse Ox 97.8 F 78 16 149/88 98 11/28/17 18:11 11/28/17 18:11 11/28/17 18:11 11/28/17 18:11 11/28/17 18:11 General appearance: Present: no acute distress, mild distress, well-nourished - EENT Eyes: Present: PERRL ENT: hearing intact, clear oral mucosa - Neck Neck: Present: supple, normal ROM - Respiratory Respiratory effort: normal Respiratory: bilateral: CTA - Cardiovascular Heart rate: 86 Rhythm: regular Heart Sounds: Present: S1 & S2. Absent: rub, click - Extremities Extremities: no ischemia, pulses intact, pulses symmetrical, No edema Peripheral Pulses: within normal limits - Abdominal General gastrointestinal: Present: soft, non-tender, non-distended, normal bowel sounds Localized gastrointestinal: tender: suprapubic (right flank tenderness) Female genitourinary: Present: normal - Rectal Rectal Exam: deferred - Integumentary Integumentary: Present: clear, warm, dry - Musculoskeletal Musculoskeletal: gait normal, strength equal bilaterally - Psychiatric Psychiatric: appropriate mood/affect, intact judgment & insight - Neurologic Neurologic: CNII-XII intact, moves all extremities - Allied Health Allied health notes reviewed: nursing, case management Results - Labs CBC & Chem 7: 11/28/17 10:46 11/28/17 10:46 Labs: Laboratory Last Values WBC 10.6 K/mm3 (4.5-11.0) 11/28/17 10:46 RBC 4.63 M/mm3 (3.65-5.03) 11/28/17 10:46 Hgb 13.1 gm/dl (10.1-14.3) 11/28/17 10:46 Hct 39.6 % (30.3-42.9) 11/28/17 10:46 MCV 86 fl (79-97) 11/28/17 10:46 MCH 28 pg (28-32) 11/28/17 10:46 MCHC 33 % (30-34) 11/28/17 10:46 RDW 12.9 % (13.2-15.2) L 11/28/17 10:46 Plt Count 300 K/mm3 (140-440) 11/28/17 10:46 Add Manual Diff Complete 11/28/17 10:46 Total Counted 100 11/28/17 10:46 Seg Neuts % (Manual) 86.0 % (40.0-70.0) H 11/28/17 10:46 Band Neutrophils % 4.0 % 11/28/17 10:46 Lymphocytes % (Manual) 8.0 % (13.4-35.0) L 11/28/17 10:46 Reactive Lymphs % (Man) 0 % 11/28/17 10:46 Monocytes % (Manual) 2.0 % (0.0-7.3) 11/28/17 10:46 Eosinophils % (Manual) 0 % (0.0-4.3) 11/28/17 10:46 Basophils % (Manual) 0 % (0.0-1.8) 11/28/17 10:46 Metamyelocytes % 0 % 11/28/17 10:46 Myelocytes % 0 % 11/28/17 10:46 Promyelocytes % 0 % 11/28/17 10:46 Blast Cells % 0 % 11/28/17 10:46 Nucleated RBC % Not Reportable 11/28/17 10:46 Seg Neutrophils # Man 9.1 K/mm3 (1.8-7.7) H 11/28/17 10:46 Band Neutrophils # 0.4 K/mm3 11/28/17 10:46 Lymphocytes # (Manual) 0.8 K/mm3 (1.2-5.4) L 11/28/17 10:46 Abs React Lymphs (Man) 0.0 K/mm3 11/28/17 10:46 Monocytes # (Manual) 0.2 K/mm3 (0.0-0.8) 11/28/17 10:46 Eosinophils # (Manual) 0.0 K/mm3 (0.0-0.4) 11/28/17 10:46 Basophils # (Manual) 0.0 K/mm3 (0.0-0.1) 11/28/17 10:46 Metamyelocytes # 0.0 K/mm3 11/28/17 10:46 Myelocytes # 0.0 K/mm3 11/28/17 10:46 Promyelocytes # 0.0 K/mm3 11/28/17 10:46 Blast Cells # 0.0 K/mm3 11/28/17 10:46 WBC Morphology Not Reportable 11/28/17 10:46 Hypersegmented Neuts Not Reportable 11/28/17 10:46 Hyposegmented Neuts Not Reportable 11/28/17 10:46 Hypogranular Neuts Not Reportable 11/28/17 10:46 Smudge Cells Not Reportable 11/28/17 10:46 Toxic Granulation Not Reportable 11/28/17 10:46 Toxic Vacuolation Not Reportable 11/28/17 10:46 Dohle Bodies Not Reportable 11/28/17 10:46 Pelger-Huet Anomaly Not Reportable 11/28/17 10:46 Marco Rods Not Reportable 11/28/17 10:46 Platelet Estimate Cons 11/28/17 10:46 Clumped Platelets Not Reportable 11/28/17 10:46 Plt Clumps, EDTA Not Reportable 11/28/17 10:46 Large Platelets Not Reportable 11/28/17 10:46 Giant Platelets Not Reportable 11/28/17 10:46 Platelet Satelliting Not Reportable 11/28/17 10:46 Plt Morphology Comment Not Reportable 11/28/17 10:46 RBC Morphology Not Reportable 11/28/17 10:46 Dimorphic RBCs Not Reportable 11/28/17 10:46 Polychromasia Not Reportable 11/28/17 10:46 Hypochromasia Not Reportable 11/28/17 10:46 Poikilocytosis 1+ 11/28/17 10:46 Anisocytosis 1+ 11/28/17 10:46 Microcytosis Not Reportable 11/28/17 10:46 Macrocytosis Not Reportable 11/28/17 10:46 Spherocytes Not Reportable 11/28/17 10:46 Pappenheimer Bodies Not Reportable 11/28/17 10:46 Sickle Cells Not Reportable 11/28/17 10:46 Target Cells Not Reportable 11/28/17 10:46 Tear Drop Cells Not Reportable 11/28/17 10:46 Ovalocytes Few 11/28/17 10:46 Helmet Cells Not Reportable 11/28/17 10:46 Luis-[place] Bodies Not Reportable 11/28/17 10:46 [place] Rings Not Reportable 11/28/17 10:46 [place] Cells Not Reportable 11/28/17 10:46 Bite Cells Not Reportable 11/28/17 10:46 Crenated Cell Not Reportable 11/28/17 10:46 Elliptocytes Few 11/28/17 10:46 Acanthocytes (Spur) Not Reportable 11/28/17 10:46 Rouleaux Not Reportable 11/28/17 10:46 Hemoglobin C Crystals Not Reportable 11/28/17 10:46 Schistocytes Not Reportable 11/28/17 10:46 Malaria parasites Not Reportable 11/28/17 10:46 Clint Bodies Not Reportable 11/28/17 10:46 Hem Pathologist Commnt No 11/28/17 10:46 PT 12.7 Sec. (12.2-14.9) 11/28/17 10:46 INR 0.91 (0.87-1.13) 11/28/17 10:46 VBG pH 7.534 (7.320-7.420) H 11/28/17 10:46 Sodium 136 mmol/L (137-145) L 11/28/17 10:46 Potassium 4.2 mmol/L (3.6-5.0) 11/28/17 10:46 Chloride 94.8 mmol/L (98-107) L 11/28/17 10:46 Carbon Dioxide 24 mmol/L (22-30) 11/28/17 10:46 Anion Gap 21 mmol/L 11/28/17 10:46 BUN 8 mg/dL (7-17) 11/28/17 10:46 Creatinine 0.5 mg/dL (0.7-1.2) L 11/28/17 10:46 Estimated GFR > 60 ml/min 11/28/17 10:46 BUN/Creatinine Ratio 16 % 11/28/17 10:46 Glucose 247 mg/dL (65-100) H 11/28/17 10:46 POC Glucose 218 (70-105) H 11/28/17 21:40 Lactic Acid 1.50 mmol/L (0.7-2.0) 11/28/17 14:43 Calcium 9.3 mg/dL (8.4-10.2) 11/28/17 10:46 Total Bilirubin 1.20 mg/dL (0.1-1.2) 11/28/17 10:46 AST 11 units/L (5-40) 11/28/17 10:46 ALT 10 units/L (7-56) 11/28/17 10:46 Alkaline Phosphatase 95 units/L (35-129) 11/28/17 10:46 Total Protein 7.5 g/dL (6.3-8.2) 11/28/17 10:46 Albumin 4.1 g/dL (3.9-5) 11/28/17 10:46 Albumin/Globulin Ratio 1.2 % 11/28/17 10:46 Urine Color Yellow (Yellow) 11/28/17 11:37 Urine Turbidity Cloudy (Clear) 11/28/17 11:37 Urine pH 7.0 (5.0-7.0) 11/28/17 11:37 Ur Specific [place] 1.013 (1.003-1.030) 11/28/17 11:37 Urine Protein 100 mg/dl mg/dL (Negative) 11/28/17 11:37 Urine Glucose (UA) >=500 mg/dL (Negative) 11/28/17 11:37 Urine Ketones Neg mg/dL (Negative) 11/28/17 11:37 Urine Blood Lg (Negative) 11/28/17 11:37 Urine Nitrite Neg (Negative) 11/28/17 11:37 Urine Bilirubin Neg (Negative) 11/28/17 11:37 Urine Urobilinogen < 2.0 mg/dL (<2.0) 11/28/17 11:37 Ur Leukocyte Esterase Lg (Negative) 11/28/17 11:37 Urine WBC (Auto) > 182.0 /HPF (0.0-6.0) H 11/28/17 11:37 Urine RBC (Auto) 154.0 /HPF (0.0-6.0) 11/28/17 11:37 Urine Bacteria (Auto) 2+ /HPF (Negative) 11/28/17 11:37 Urine HCG, Qual Negative (Negative) 11/28/17 11:49 Blood Type O POSITIVE 11/28/17 11:27 Antibody Screen Negative 11/28/17 11:27 Short CBC 11/28/17 Range/Units 10:46 WBC 10.6 (4.5-11.0) K/mm3 Hgb 13.1 (10.1-14.3) gm/dl Hct 39.6 (30.3-42.9) % Plt Count 300 (140-440) K/mm3 BMP 11/28/17 10:46 Sodium 136 L Potassium 4.2 Chloride 94.8 L Carbon Dioxide 24 BUN 8 Creatinine 0.5 L Glucose 247 H Calcium 9.3 Liver Function 11/28/17 Range/Units 10:46 Total Bilirubin 1.20 (0.1-1.2) mg/dL AST 11 (5-40) units/L ALT 10 (7-56) units/L Alkaline Phosphatase 95 (35-129) units/L Albumin 4.1 (3.9-5) g/dL Urine 11/28/17 Range/Units 11:37 Urine Color Yellow (Yellow) Urine pH 7.0 (5.0-7.0) Ur Specific [place] 1.013 (1.003-1.030) Urine Protein 100 mg/dl (Negative) mg/dL Urine Glucose (UA) >=500 (Negative) mg/dL - Imaging and Cardiology Imaging and Cardiology: CT abdomen and pelvis IMPRESSION: There is some mild infiltration around the right kidney and in the right renal hilum. This could reflect upper urinary tract infection/ pyelonephritis. Correlate clinically. Assessment and Plan Advance Directives: Yes (full code) VTE prophylaxis?: Chemical Plan of care discussed with patient/family: Yes - Patient Problems (1) Sepsis Current Visit: Yes Status: Acute Qualifiers: Sepsis type: sepsis due to unspecified organism Qualified Code(s): A41.9 - Sepsis, unspecified organism Plan to address problem: Patient meets sepsis criteria Lactic acid high Because of the urinary tract infection and pyelonephritis Patient initiated on IV Rocephin 2 g IV piggyback every 24 (2) Pyelonephritis Current Visit: Yes Status: Acute Plan to address problem: IV Rocephin and IV fluids for now. Pending urine cultures and blood cultures (3) Hyponatremia Current Visit: Yes Status: Acute Plan to address problem: mild should correct with IV fluids (4) Type 2 diabetes mellitus Current Visit: Yes Status: Chronic Qualifiers: Diabetes mellitus intermediate teacher insulin use: without senior living use Plan to address problem: Continue oral hypoglycemics and coverage. (5) DVT prophylaxis Current Visit: Yes Status: Acute Plan to address problem: heparin subcutaneously GI prophylaxis famotidine initiated
[2017-11-28] MEDS ORDERED: D5NS 1,000 ML IV SCH (23:45)
[2017-11-29] MEDS: TYLENOL PO PRN (00:16)
[2017-11-29] MEDS: NACL 0.9% 1000 ML 1,000 ML IV SCH ×2 (00:17→14:06)
[2017-11-29] MEDS: SODIUM CHLORIDE FLUSH SYRINGE 10 ML IV PRN ×2 (00:18→05:45)
[2017-11-29] MEDS: MORPHINE IV PRN ×4 (05:44→23:10)
[2017-11-29] MEDS: HumaLOG SUB-Q SCH ×4 (07:30→23:58)
[2017-11-29 07:43] LABS: Hematocrit 33.9 % (30.3-42.9); Hemoglobin 10.9 gm/dl (10.1-14.3); Mean Corpuscular HGB Conc 32 % (30-34); Mean Corpuscular Hemoglobin 28 pg (28-32); Mean Corpuscular Volume 86 fl (79-97); Mean Platelet Volume 8.2 fl (6-12); Platelet Count 273 K/mm3 (140-440); Red Blood Count 3.96 M/mm3 (3.65-5.03); Red Cell Distribution Width 12.6 % (13.2-15.2)
[2017-11-29 07:47] LABS: Alanine Aminotransferase 8 units/L (7-56); Albumin 3.1 g/dL (3.9-5); BUN/Creatinine Ratio 14; Blood Urea Nitrogen 7 mg/dL (7-17); Calcium 8.1 mg/dL (8.4-10.2); Hemolysis Index 1
[2017-11-29] MEDS: GLUCOPHAGE PO SCH ×2 (08:00→17:00)
[2017-11-29] MEDS: GLUCOTROL XL PO SCH (08:00)
[2017-11-29 08:27] LABS: Band Neutrophils # (Manual) 0.4 K/mm3; Basophils % (Manual) 0 % (0.0-1.8); Eosinophils % (Manual) 0 % (0.0-4.3); Total Cells Counted 100
[2017-11-29 08:28] LABS: Anisocytosis 1+; Ovalocytes Few; Platelet Estimate Consistent w Auto
[2017-11-29] MEDS: SODIUM CHLORIDE FLUSH SYRINGE 10 ML IV SCH ×2 (09:59→23:11)
[2017-11-29] MEDS ORDERED: ROCEPHIN/NS 2 GM/100 ML 2 GM/100 ML BAG IV SCH (10:00)
[2017-11-29] MEDS: cefTRIAXone 2 GM in NACL 0.9% 20 ML IV SCH (10:00)
--- NOTE | 2017-11-29 12:34 | Progress Note ---
Assessment and Plan Assessment and plan: Patient is a 47 yo woman with a history of type 2 DM who presented with dysuria and hematuria. She went to [facility] earlier in the week for same things but no abx were given. CT abdomen and pelvis w/ contrast IMPRESSION: There is some mild infiltration around the right kidney and in the right renal hilum. This could reflect upper urinary tract infection/pyelonephritis. Correlate clinically. -Sepsis Patient meets sepsis criteria Lactic acid high Because of the urinary tract infection and pyelonephritis Patient initiated on IV Rocephin 2 g IV piggyback every 24 -Pyelonephritis Current Visit: Yes Status: Acute Plan to address problem: IV Rocephin and IV fluids for now. Pending urine cultures and blood cultures - Hyponatremia Current Visit: Yes Status: Acute Plan to address problem: mild should correct with IV fluids -Type 2 diabetes mellitus Current Visit: Yes Status: Chronic Qualifiers: Diabetes mellitus [facility] insulin use: without [facility] use Plan to address problem: Continue oral hypoglycemics and coverage. - DVT prophylaxis Current Visit: Yes Status: Acute Plan to address problem: heparin subcutaneously GI prophylaxis famotidine initiated History Interval history: Patient was seen and examined. Follow-up on current diagnosis of flank pains. Overnight uneventful. Patient denies any chest pain, shortness breath, nausea/ vomiting or severe headaches. Imaging, nursing note, chart, labs and old chart reviewed. Discussed with patient. Hospitalist Physical - Physical exam Narrative exam: GEN: WDWN, NAD, Awake, Alert, Orientated x 3 HEENT: NCAT, EOMI, PERRL, OP Clear NECK: supple, no adenopathy, no thyromegaly, no JVD CVS/HEART: regular tachy, normal S1S2, pulses present bilaterally CHEST/LUNGS: CTA B, Symmetrical chest expansion, good air entry bilaterally GI/Abdomen: soft, NTND, good bowel sounds, no guarding or rebound /Bladder: no suprapubic tenderness, + right sided CVA tenderness but or no paraspinal tenderness EXT/Skin: no c/c/e, no obvious rash MSK: FROM x 4 Neuro: CN 2-12 grossly intact, no new focal deficits Psych: calm - Constitutional Vitals: Temp Pulse Resp BP Pulse Ox 99.6 F 117 H 20 132/69 93 11/29/17 00:00 11/29/17 07:34 11/29/17 07:34 11/29/17 07:34 11/29/17 07:34 General appearance: Present: no acute distress, mild distress, well-nourished Results - Labs CBC & Chem 7: 11/29/17 06:57 11/29/17 06:57 Labs: Laboratory Last Values WBC 18.6 K/mm3 (4.5-11.0) H 11/29/17 06:57 RBC 3.96 M/mm3 (3.65-5.03) 11/29/17 06:57 Hgb 10.9 gm/dl (10.1-14.3) 11/29/17 06:57 Hct 33.9 % (30.3-42.9) 11/29/17 06:57 MCV 86 fl (79-97) 11/29/17 06:57 MCH 28 pg (28-32) 11/29/17 06:57 MCHC 32 % (30-34) 11/29/17 06:57 RDW 12.6 % (13.2-15.2) L 11/29/17 06:57 Plt Count 273 K/mm3 (140-440) 11/29/17 06:57 Add Manual Diff Complete 11/29/17 06:57 Total Counted 100 11/29/17 06:57 Seg Neuts % (Manual) 91.0 % (40.0-70.0) H 11/29/17 06:57 Band Neutrophils % 2.0 % 11/29/17 06:57 Lymphocytes % (Manual) 4.0 % (13.4-35.0) L 11/29/17 06:57 Reactive Lymphs % (Man) 0 % 11/29/17 06:57 Monocytes % (Manual) 3.0 % (0.0-7.3) 11/29/17 06:57 Eosinophils % (Manual) 0 % (0.0-4.3) 11/29/17 06:57 Basophils % (Manual) 0 % (0.0-1.8) 11/29/17 06:57 Metamyelocytes % 0 % 11/29/17 06:57 Myelocytes % 0 % 11/29/17 06:57 Promyelocytes % 0 % 11/29/17 06:57 Blast Cells % 0 % 11/29/17 06:57 Nucleated RBC % Not Reportable 11/29/17 06:57 Seg Neutrophils # Man 16.9 K/mm3 (1.8-7.7) H 11/29/17 06:57 Band Neutrophils # 0.4 K/mm3 11/29/17 06:57 Lymphocytes # (Manual) 0.7 K/mm3 (1.2-5.4) L 11/29/17 06:57 Abs React Lymphs (Man) 0.0 K/mm3 11/29/17 06:57 Monocytes # (Manual) 0.6 K/mm3 (0.0-0.8) 11/29/17 06:57 Eosinophils # (Manual) 0.0 K/mm3 (0.0-0.4) 11/29/17 06:57 Basophils # (Manual) 0.0 K/mm3 (0.0-0.1) 11/29/17 06:57 Metamyelocytes # 0.0 K/mm3 11/29/17 06:57 Myelocytes # 0.0 K/mm3 11/29/17 06:57 Promyelocytes # 0.0 K/mm3 11/29/17 06:57 Blast Cells # 0.0 K/mm3 11/29/17 06:57 WBC Morphology Not Reportable 11/29/17 06:57 Hypersegmented Neuts Not Reportable 11/29/17 06:57 Hyposegmented Neuts Not Reportable 11/29/17 06:57 Hypogranular Neuts Not Reportable 11/29/17 06:57 Smudge Cells Not Reportable 11/29/17 06:57 Toxic Granulation Not Reportable 11/29/17 06:57 Toxic Vacuolation Not Reportable 11/29/17 06:57 Dohle Bodies Not Reportable 11/29/17 06:57 Pelger-Huet Anomaly Not Reportable 11/29/17 06:57 Marco Rods Not Reportable 11/29/17 06:57 Platelet Estimate Consistent w auto 11/29/17 06:57 Clumped Platelets Not Reportable 11/29/17 06:57 Plt Clumps, EDTA Not Reportable 11/29/17 06:57 Large Platelets Not Reportable 11/29/17 06:57 Giant Platelets Not Reportable 11/29/17 06:57 Platelet Satelliting Not Reportable 11/29/17 06:57 Plt Morphology Comment Not Reportable 11/29/17 06:57 RBC Morphology Not Reportable 11/29/17 06:57 Dimorphic RBCs Not Reportable 11/29/17 06:57 Polychromasia Not Reportable 11/29/17 06:57 Hypochromasia Not Reportable 11/29/17 06:57 Poikilocytosis Not Reportable 11/29/17 06:57 Anisocytosis 1+ 11/29/17 06:57 Microcytosis 1+ 11/29/17 06:57 Macrocytosis Not Reportable 11/29/17 06:57 Spherocytes Not Reportable 11/29/17 06:57 Pappenheimer Bodies Not Reportable 11/29/17 06:57 Sickle Cells Not Reportable 11/29/17 06:57 Target Cells Not Reportable 11/29/17 06:57 Tear Drop Cells Not Reportable 11/29/17 06:57 Ovalocytes Few 11/29/17 06:57 Helmet Cells Not Reportable 11/29/17 06:57 [place] Bodies Not Reportable 11/29/17 06:57 [place] Rings Not Reportable 11/29/17 06:57 [place] Cells Not Reportable 11/29/17 06:57 Bite Cells Not Reportable 11/29/17 06:57 Crenated Cell Not Reportable 11/29/17 06:57 Elliptocytes Not Reportable 11/29/17 06:57 Acanthocytes (Spur) Not Reportable 11/29/17 06:57 Rouleaux Not Reportable 11/29/17 06:57 Hemoglobin C Crystals Not Reportable 11/29/17 06:57 Schistocytes Not Reportable 11/29/17 06:57 Malaria parasites Not Reportable 11/29/17 06:57 Clint Bodies Not Reportable 11/29/17 06:57 Hem Pathologist Commnt No 11/29/17 06:57 PT 12.7 Sec. (12.2-14.9) 11/28/17 10:46 INR 0.91 (0.87-1.13) 11/28/17 10:46 VBG pH 7.534 (7.320-7.420) H 11/28/17 10:46 Sodium 135 mmol/L (137-145) L 11/29/17 06:57 Potassium 3.5 mmol/L (3.6-5.0) L 11/29/17 06:57 Chloride 99.3 mmol/L (98-107) 11/29/17 06:57 Carbon Dioxide 26 mmol/L (22-30) 11/29/17 06:57 Anion Gap 13 mmol/L 11/29/17 06:57 BUN 7 mg/dL (7-17) 11/29/17 06:57 Creatinine 0.5 mg/dL (0.7-1.2) L 11/29/17 06:57 Estimated GFR > 60 ml/min 11/29/17 06:57 BUN/Creatinine Ratio 14 % 11/29/17 06:57 Glucose 181 mg/dL (65-100) H 11/29/17 06:57 POC Glucose 147 (70-105) H 11/29/17 11:49 Hemoglobin A1c 9.6 % (4-6) H 11/28/17 23:40 Lactic Acid 1.50 mmol/L (0.7-2.0) 11/28/17 14:43 Calcium 8.1 mg/dL (8.4-10.2) L 11/29/17 06:57 Total Bilirubin 0.50 mg/dL (0.1-1.2) 11/29/17 06:57 AST 8 units/L (5-40) 11/29/17 06:57 ALT 8 units/L (7-56) 11/29/17 06:57 Alkaline Phosphatase 82 units/L (35-129) 11/29/17 06:57 Total Protein 6.0 g/dL (6.3-8.2) L 11/29/17 06:57 Albumin 3.1 g/dL (3.9-5) L 11/29/17 06:57 Albumin/Globulin Ratio 1.1 % 11/29/17 06:57 Urine Color Yellow (Yellow) 11/28/17 11:37 Urine Turbidity Cloudy (Clear) 11/28/17 11:37 Urine pH 7.0 (5.0-7.0) 11/28/17 11:37 Ur Specific [place] 1.013 (1.003-1.030) 11/28/17 11:37 Urine Protein 100 mg/dl mg/dL (Negative) 11/28/17 11:37 Urine Glucose (UA) >=500 mg/dL (Negative) 11/28/17 11:37 Urine Ketones Neg mg/dL (Negative) 11/28/17 11:37 Urine Blood Lg (Negative) 11/28/17 11:37 Urine Nitrite Neg (Negative) 11/28/17 11:37 Urine Bilirubin Neg (Negative) 11/28/17 11:37 Urine Urobilinogen < 2.0 mg/dL (<2.0) 11/28/17 11:37 Ur Leukocyte Esterase Lg (Negative) 11/28/17 11:37 Urine WBC (Auto) > 182.0 /HPF (0.0-6.0) H 11/28/17 11:37 Urine RBC (Auto) 154.0 /HPF (0.0-6.0) 11/28/17 11:37 Urine Bacteria (Auto) 2+ /HPF (Negative) 11/28/17 11:37 Urine HCG, Qual Negative (Negative) 11/28/17 11:49 Blood Type O POSITIVE 11/28/17 11:27 Antibody Screen Negative 11/28/17 11:27
[2017-11-30] MEDS: MORPHINE IV PRN (06:42)
[2017-11-30] MEDS: HumaLOG SUB-Q SCH ×2 (07:30→12:12)
[2017-11-30] MEDS: GLUCOTROL XL PO SCH (08:00)
[2017-11-30] MEDS: GLUCOPHAGE PO SCH (08:00)
[2017-11-30 08:29] VITALS: BP 131/85
[2017-11-30] MEDS: SODIUM CHLORIDE FLUSH SYRINGE 10 ML IV SCH (10:01)
[2017-11-30] MEDS: cefTRIAXone 2 GM in NACL 0.9% 20 ML IV SCH (10:04)
[2017-11-30] MEDS: TYLENOL PO PRN (10:08)
[2017-11-30 10:45] LABS: Hematocrit 33.2 % (30.3-42.9); Hemoglobin 10.5 gm/dl (10.1-14.3); Mean Corpuscular HGB Conc 32 % (30-34); Mean Corpuscular Hemoglobin 27 pg (28-32); Mean Corpuscular Volume 86 fl (79-97); Platelet Count 241 K/mm3 (140-440); Red Blood Count 3.85 M/mm3 (3.65-5.03); Red Cell Distribution Width 12.9 % (13.2-15.2)
[2017-11-30 10:52] LABS: BUN/Creatinine Ratio 15; Blood Urea Nitrogen 6 mg/dL (7-17); Calcium 8.1 mg/dL (8.4-10.2); Hemolysis Index 0
--- NOTE | 2017-11-30 14:06 | Discharge Summary ---
Providers - Providers Date of Admission: 11/28/17 16:26 Date of discharge: 11/30/17 Attending physician: RAFFI FRANCIS Primary care physician: PATIENT OMBUDSPERSON Hospitalization Condition: Stable Hospital course: Patient is a 47 yo woman with a history of type 2 DM who presented with dysuria and hematuria. She went to [facility] earlier in the week for same things but no abx were given. CT abdomen and pelvis w/ contrast IMPRESSION: There is some mild infiltration around the right kidney and in the right renal hilum. This could reflect upper urinary tract infection/pyelonephritis. Correlate clinically. -Sepsis Patient meets sepsis criteria Lactic acid high Because of the urinary tract infection and pyelonephritis Patient initiated on IV Rocephin 2 g IV piggyback every 24 -Pyelonephritis Current Visit: Yes Status: Acute Plan to address problem: IV Rocephin and IV fluids for now. Pending urine cultures and blood cultures - Hyponatremia Current Visit: Yes Status: Acute Plan to address problem: mild should correct with IV fluids -Type 2 diabetes mellitus Current Visit: Yes Status: Chronic Qualifiers: Diabetes mellitus long chain beamer insulin use: without long chain beamer use Plan to address problem: Continue oral hypoglycemics and coverage. - DVT prophylaxis Current Visit: Yes Status: Acute Plan to address problem: heparin subcutaneously GI prophylaxis famotidine initiated No n/v E. coli growing, will d/c home on Cipro Disposition: DC-01 TO HOME OR SELFCARE Time spent for discharge: 35 minutes Core Measure Documentation - Palliative Care Palliative Care/ Comfort Measures: Not Applicable - Core Measures Any of the following diagnoses?: none - VTE Discharge Requirements Deep Vein Thrombosis/Pulmonary Embolism Present on Admission: No Has pt received <5 days of overlap therapy or INR<2.0: No Anticoagulant overlap therapy prescribed at discharge: No Contraindication No Overlap Therapy order at DC: Not Indicated Exam - Physical Exam Narrative exam: GEN: WDWN, NAD, Awake, Alert, Orientated x 3 HEENT: NCAT, EOMI, PERRL, OP Clear NECK: supple, no adenopathy, no thyromegaly, no JVD CVS/HEART: regular tachy, normal S1S2, pulses present bilaterally CHEST/LUNGS: CTA B, Symmetrical chest expansion, good air entry bilaterally GI/Abdomen: soft, NTND, good bowel sounds, no guarding or rebound /Bladder: no suprapubic tenderness, + right sided CVA tenderness but or no paraspinal tenderness EXT/Skin: no c/c/e, no obvious rash MSK: FROM x 4 Neuro: CN 2-12 grossly intact, no new focal deficits Psych: calm - Constitutional Vitals: Temp Pulse Resp BP Pulse Ox 98.2 F 92 H 20 131/85 95 11/30/17 07:49 11/30/17 07:49 11/30/17 07:49 11/30/17 07:49 11/30/17 07:49 Plan Special Instructions: record blood sugar diary (check blood sugar before meals) Follow up with: PRIMARY CARE, [Primary Care Provider] - 3-5 Days Forms: Work/School Release Form(ED) Prescriptions: Ciprofloxacin HCl [Ciprofloxacin TAB] 500 mg PO BID #20 tablet glipiZIDE [glipiZIDE ER] 5 mg PO QAM #30 tab.er.24 metFORMIN [Glucophage] 1,000 mg PO BID 30 Days tablet
== END 2017-11-30 17:27 | disposition home or self-care (01) | DRG 872 ==
LOC: ED 10:39 → 3A 16:26
PROVIDERS: ADMIT Internal Medicine; ATTEND Internal Medicine
DX: A41.9 Sepsis, unspecified organism (principal); N39.0 Urinary tract infection, site not specified; N12 Tubulo-interstitial nephritis, not specified as acute or chronic; E87.1 Hypo-osmolality and hyponatremia; E11.9 Type 2 diabetes mellitus without complications; Z79.899 Other long term (current) drug therapy; Z88.5 Allergy status to narcotic agent
CPT/HCPCS: 36415; 71045; 74177; 80048; 80053; 81001; 81025; 82140; 82805; 82962; 83036; 85007; 85025; 85027; 85610; 86850; 86900; 86901; 87040; 87076; 87086; 87186; 93005; 93010; J0696; J1815; J1956; J2270; J3010; J7030; J7040; Q9967

== ENCOUNTER 2018-10-18 16:39 | Emergency (ER) | payer OTHER ==
[2018-10-18 17:01] VITALS: BP 152/83
--- NOTE | 2018-10-18 17:32 | XRay Report ---
XR KNEE 3V RT CLINICAL INDICATION: Female, 48 years of age. rt knee pain COMPARISON: None. FINDINGS: 3 views of the right knee obtained. Bony structures are intact. Joint spaces are maintaine d. No acute fracture or dislocation. IMPRESSION: No acute bony abnormality. This document is electronically signed by Jaswinder Burger DO., October 18 2018 05:31:04 PM ET
--- NOTE | 2018-10-18 17:56 | Emergency Department Report ---
ED Lower Extremity HPI - General Chief Complaint: Extremity Problem,Nontraumatic Stated Complaint: LEFT KNEE PAIN Time Seen by Provider: 10/18/18 17:10 Source: patient Mode of arrival: Ambulatory Limitations: No Limitations - History of Present Illness Initial Comments: This is a 48-year-old female nontoxic, well nourished in appearance, no acute signs of distress presents to the ED with c/o of intermittent right knee pain 1 week. Patient denies any trauma. Patient denies any numbness, tingling, fever, chills, nausea, vomiting, chest pain, shortness of breath, headache, stiff neck. Patient denies any joint swelling or joint redness. Patient denies decreased range of motion. Patient denies any decreased gait. Patient stated allergies to codeine with no significant PMH. MD Complaint: knee injury -: week(s) (1) Injury: Knee: Right Severity: mild Severity scale (0 -10): 8 Improves With: immobilization Worsens With: weight bearing, movement, palpation Associated Symptoms: able to partially bear weight, ambulatory. denies: snap/pop sensation, swelling, numbness, tingling, unable to bear weight - Related Data Previous Rx's Medication Instructions Recorded Last Taken Type glipiZIDE [glipiZIDE ER] 5 mg PO QAM #30 tab.er.24 11/30/17 Unknown Rx metFORMIN [Glucophage] 1,000 mg PO BID 30 Days tablet 11/30/17 Unknown Rx Amoxicillin 500 mg PO BID #20 capsule 07/21/18 Unknown Rx methylPREDNISolone [Medrol] 4 mg PO DAILY #1 tab.ds.pk 07/21/18 Unknown Rx Ibuprofen [Motrin] 600 mg PO Q8H PRN #20 tablet 10/18/18 Unknown Rx Allergies Allergy/AdvReac Type Severity Reaction Status Date / Time codeine Allergy Nausea Verified 09/22/15 18:01 ED Review of Systems ROS: Stated complaint: LEFT KNEE PAIN Other details as noted in HPI Constitutional: denies: chills, fever Eyes: denies: eye pain, eye discharge, vision change ENT: denies: ear pain, throat pain Respiratory: denies: cough, shortness of breath, wheezing Cardiovascular: denies: chest pain, palpitations Endocrine: no symptoms reported Gastrointestinal: denies: abdominal pain, nausea, diarrhea Genitourinary: denies: urgency, dysuria, discharge Musculoskeletal: denies: back pain, joint swelling, arthralgia Skin: denies: rash, lesions Neurological: denies: headache, weakness, paresthesias Psychiatric: denies: anxiety, depression Hematological/Lymphatic: denies: easy bleeding, easy bruising ED Past Medical Hx - Past Medical History Previous Medical History?: Yes Hx Congestive Heart Failure: No Hx Diabetes: Yes Hx Sickle Cell Disease: No Hx Asthma: No Hx COPD: No - Surgical History Past Surgical History?: Yes Additional Surgical History: heart cath - Social History Smoking Status: Never Smoker Substance Use Type: None - Medications Home Medications: Home Medications Medication Instructions Recorded Confirmed Last Taken Type glipiZIDE [glipiZIDE ER] 5 mg PO QAM #30 tab.er.24 11/30/17 Unknown Rx metFORMIN [Glucophage] 1,000 mg PO BID 30 Days tablet 11/30/17 Unknown Rx Amoxicillin 500 mg PO BID #20 capsule 07/21/18 Unknown Rx methylPREDNISolone [Medrol] 4 mg PO DAILY #1 tab.ds.pk 07/21/18 Unknown Rx Ibuprofen [Motrin] 600 mg PO Q8H PRN #20 tablet 10/18/18 Unknown Rx ED Physical Exam - General Limitations: No Limitations General appearance: alert, in no apparent distress - Head Head exam: Present: atraumatic, normocephalic - Eye Eye exam: Present: normal appearance - Neck Neck exam: Present: normal inspection, full ROM. Absent: tenderness, meningismus, lymphadenopathy - Extremities Exam Extremities exam: Present: normal inspection, full ROM, tenderness, normal capillary refill. Absent: joint swelling - Expanded Lower Extremity Exam Right Hip exam: Present: normal inspection, full ROM. Absent: tenderness, swelling Upper Leg exam: Present: normal inspection, full ROM. Absent: tenderness, swelling Knee exam: Present: normal inspection, full ROM, tenderness, full knee extension. Absent: swelling, abrasion, laceration, ecchymosis, deformity, crepidus, dislocation, erythema, effusion, pain w/ pronation/supination, posterior draw sign, pain/laxity with valgus, pain/laxity with varus Lower Leg exam: Present: normal inspection, full ROM. Absent: tenderness, swelling Ankle exam: Present: normal inspection, full ROM. Absent: tenderness, swelling Foot/Toe exam: Present: normal inspection, full ROM. Absent: tenderness, swelling Neuro vascular tendon exam: Present: no vascular compromise Gait: Positive: observed and limited by pain - Back Exam Back exam: Present: normal inspection, full ROM - Neurological Exam Neurological exam: Present: alert, oriented X3 - Psychiatric Psychiatric exam: Present: normal affect, normal mood - Skin Skin exam: Present: warm, dry, intact, normal color. Absent: rash ED Course Vital Signs 10/18/18 16:59 Temperature 98.7 F Pulse Rate 92 H Respiratory 18 Rate Blood Pressure 152/83 O2 Sat by Pulse 100 Oximetry - Reevaluation(s) Reevaluation #1: 10/18/18 18:07 Patient is speaking in full sentences with no signs of distress noted. ED Lower Extremity MDM - Medical Decision Making This is a 48-year-old female that presents with left knee strain. Patient is s table and was examined by me. I referred patient to an orthopedic doctor for further evaluation for possible MRI. X-ray has been obtained and dictated by the radiologist. Patient is notified of the x-ray report with noted by the patient. Patient does have normal gait with no tenderness and no joint swelling. No ecchymosis. no joint redness or swelling. Not warm to touch. No signs of cellulites present. Patient received sharona wrap. Patient was instructed to RICE therapy. Patient is discharged with Motrin. At time of discharge, the patient does not seem toxic or ill in appearance. No acute signs of distress noted. Patient agrees to discharge treatment plan of care. No further questions noted by the patient. Critical care attestation.: If time is entered above; I have spent that time in minutes in the direct care of this critically ill patient, excluding procedure time. ED Disposition Clinical Impression: Strain of right knee Qualifiers: Encounter type: initial encounter Qualified Code(s): S86.911A - Strain of unspecified muscle(s) and tendon(s) at lower leg level, right leg, initial encounter Disposition: TO HOME OR SELFCARE Is pt being admited?: No Does the pt Need Aspirin: No Condition: Stable Instructions: Knee Pain (ED), RICE Therapy (ED) Additional Instructions: Follow-up with a orthopedic doctor in 3-5 days or if symptoms worsen and continue return to emergency room as soon as possible. Prescriptions: Ibuprofen [Motrin] 600 mg PO Q8H PRN #20 tablet PRN Reason: Pain Referrals: PRIMARY CARE, [Referring] - 3-5 Days QUIN ROBLES MD [Staff Physician] - 3-5 Days [facility] [Outside] - 3-5 Days [facility] [Outside] - 3-5 Days SETH LOPEZ MD [Staff Physician] - 3-5 Days Forms: Work/School Release Form(ED)
== END 2018-10-18 18:25 | disposition home or self-care (01) ==
LOC: ED 16:39
DX: S86.911A Strain of unspecified muscle(s) and tendon(s) at lower leg level, right leg, initial encounter (principal); E11.9 Type 2 diabetes mellitus without complications; Z88.5 Allergy status to narcotic agent; X58.XXXA Exposure to other specified factors, initial encounter; Y93.89 Activity, other specified; Y92.89 Other specified places as the place of occurrence of the external cause; Y99.8 Other external cause status

== ENCOUNTER 2019-03-10 08:28 | Emergency (ER) | payer OTHER ==
[2019-03-10 08:34] VITALS: BP 146/100
--- NOTE | 2019-03-10 09:05 | Emergency Department Report ---
ED Headache HPI - General Chief Complaint: Headache Stated Complaint: HEADACHE Time Seen by Provider: 03/10/19 08:50 - History of Present Illness Initial Comments: 48-year-old female presents with mild temporal headache. She has a history of sinus headaches with mild nasal congestion. She has progressively voice also. The sinus pills provided to her by her PCP did not provide any relief. Ibuprofen and BC powder CPR did not provide any relief. Timing/Duration: 1 week Quality: mild Head Injury Location: temporal Recent Head Trauma: frequent headaches Associated Symptoms: denies symptoms Allergies/Adverse Reactions: Allergies codeine Allergy (Verified 03/10/19 08:28) Nausea Home Medications: Ambulatory Orders glipiZIDE [glipiZIDE ER] 5 mg PO QAM #30 tab.er.24 11/30/17 metFORMIN [Glucophage] 1,000 mg PO BID 30 Days tablet 11/30/17 Amoxicillin 500 mg PO BID #20 capsule 07/21/18 methylPREDNISolone [Medrol] 4 mg PO DAILY #1 tab.ds.pk 07/21/18 Ibuprofen [Motrin] 600 mg PO Q8H PRN #20 tablet 10/18/18 Butalb/Acetaminophen/Caffeine [Fioricet 50-300-40 mg CAP] 1 cap PO Q6HR PRN #10 cap 03/10/19 ED Review of Systems ROS: Stated complaint: HEADACHE Other details as noted in HPI Constitutional: denies: fever, malaise Respiratory: denies: cough, shortness of breath, wheezing Gastrointestinal: denies: abdominal pain, nausea, vomiting ED Past Medical Hx - Past Medical History Previous Medical History?: Yes Hx Congestive Heart Failure: No Hx Diabetes: Yes Hx Sickle Cell Disease: No Hx Asthma: No Hx COPD: No - Surgical History Additional Surgical History: heart cath - Social History Smoking Status: Never Smoker - Medications Home Medications: Home Medications Medication Instructions Recorded Confirmed Last Taken Type glipiZIDE [glipiZIDE ER] 5 mg PO QAM #30 tab.er.24 11/30/17 Unknown Rx metFORMIN [Glucophage] 1,000 mg PO BID 30 Days tablet 11/30/17 Unknown Rx Amoxicillin 500 mg PO BID #20 capsule 07/21/18 Unknown Rx methylPREDNISolone [Medrol] 4 mg PO DAILY #1 tab.ds.pk 07/21/18 Unknown Rx Ibuprofen [Motrin] 600 mg PO Q8H PRN #20 tablet 10/18/18 Unknown Rx Butalb/Acetaminophen/Caffeine 1 cap PO Q6HR PRN #10 cap 03/10/19 Unknown Rx [Fioricet 50-300-40 mg CAP] ED Physical Exam - General Limitations: No Limitations General appearance: alert, in no apparent distress - Head Head exam: Present: atraumatic, normocephalic, other (no facial tenderness) - Eye Eye exam: Present: normal appearance - ENT ENT exam: Present: mucous membranes moist - Neck Neck exam: Present: normal inspection - Respiratory Respiratory exam: Absent: respiratory distress - Cardiovascular Cardiovascular Exam: Absent: systolic murmur, diastolic murmur, rubs, gallop - Extremities Exam Extremities exam: Present: normal inspection - Back Exam Back exam: Present: normal inspection - Neurological Exam Neurological exam: Present: alert, oriented X3 - Psychiatric Psychiatric exam: Present: normal affect, normal mood - Skin Skin exam: Present: warm, dry, intact, normal color. Absent: rash ED Course Vital Signs 03/10/19 08:32 Temperature 97.8 F Pulse Rate 87 Respiratory 18 Rate Blood Pressure 146/100 O2 Sat by Pulse 100 Oximetry ED Medical Decision Making - Medical Decision Making Mrs. Redmond has mild tension headache. Dc'd with prescription for fioricet Critical care attestation.: If time is entered above; I have spent that time in minutes in the direct care of this critically ill patient, excluding procedure time. ED Disposition Clinical Impression: Tension headache Disposition: DC-01 TO HOME OR SELFCARE Is pt being admited?: No Does the pt Need Aspirin: No Condition: Stable Instructions: Tension Headache (ED) Prescriptions: Butalb/Acetaminophen/Caffeine [Fioricet 50-300-40 mg CAP] 1 cap PO Q6HR PRN #10 cap PRN Reason: Headache
== END 2019-03-10 09:10 | disposition home or self-care (01) ==
LOC: ED 08:28
DX: G44.209 Tension-type headache, unspecified, not intractable (principal); E11.9 Type 2 diabetes mellitus without complications; Z88.5 Allergy status to narcotic agent; Z79.84 Long term (current) use of oral hypoglycemic drugs; Z79.899 Other long term (current) drug therapy
CPT/HCPCS: 99282

== ENCOUNTER 2019-04-07 11:31 | Emergency (ER) | payer OTHER ==
--- NOTE | 2019-04-07 11:37 | Emergency Department Report ---
Blank Doc - Documentation Documentation: 48-year-old female that presents sore throat. This initial assessment/diagnostic orders/clinical plan/treatment(s) is/are subject to change based on patient's health status, clinical progression and re- assessment by fellow clinical providers in the ED. Further treatment and workup at subsequent clinical providers discretion. Patient/guardians urged not to elope from the ED as their condition may be serious if not clinically assessed and managed. Initial orders include: 1- Patient sent to [facility] for further evaluation and treatment 2- strep swab
[2019-04-07] MEDS ORDERED: TRIMOX PO ONE (12:01)
[2019-04-07] MEDS ORDERED: DECADRON IM ONE (12:01)
--- NOTE | 2019-04-07 12:02 | Emergency Department Report ---
Minor Respiratory - HPI Chief Complaint: Sore Throat Stated Complaint: SORE THROAT Time Seen by Provider: 04/07/19 11:35 Duration: 3 Days Pain Location: Throat Severity: mild Minor Respiratory: Yes Sore Throat, Yes Able to Tolerate Fluids, No Rhinorrhea, No Ear Pain, No Cough, No Sick Contacts, No Hemoptysis, No Chest Pain, No Shortness of Breath, No Fever Other History: 48 YO COMES TO ER CO PHARYNGITIS AND HOARSENESS FOR 3 DAYS ED Review of Systems ROS: Stated complaint: SORE THROAT Other details as noted in HPI Comment: All other systems reviewed and negative ED Past Medical Hx - Past Medical History Previous Medical History?: Yes Hx Congestive Heart Failure: No Hx Diabetes: Yes Hx Sickle Cell Disease: No Hx Asthma: No Hx COPD: No - Surgical History Past Surgical History?: No Additional Surgical History: heart cath - Social History Smoking Status: Never Smoker - Medications Home Medications: Home Medications Medication Instructions Recorded Confirmed Last Taken Type glipiZIDE [glipiZIDE ER] 5 mg PO QAM #30 tab.er.24 11/30/17 Unknown Rx metFORMIN [Glucophage] 1,000 mg PO BID 30 Days tablet 11/30/17 Unknown Rx Amoxicillin 500 mg PO BID #20 capsule 07/21/18 Unknown Rx methylPREDNISolone [Medrol] 4 mg PO DAILY #1 tab.ds.pk 07/21/18 Unknown Rx Ibuprofen [Motrin] 600 mg PO Q8H PRN #20 tablet 10/18/18 Unknown Rx Butalb/Acetaminophen/Caffeine 1 cap PO Q6HR PRN #10 cap 03/10/19 Unknown Rx [Fioricet 50-300-40 mg CAP] Amoxicillin [Trimox CAP] 500 mg PO BID #20 capsule 04/07/19 Unknown Rx predniSONE [Deltasone] 20 mg PO DAILY #5 tablet 04/07/19 Unknown Rx Minor Respiratory Exam - Exam General: Vital signs noted. No distress. Alert and acting appropriately. HEENT: Yes Pharyngeal Erythema, Yes Moist Mucous Membranes, No Pharyngeal Exudates, No Rhinorrhea Ear: Neither TM Bulge, Neither TM Erythema, Neither EAC Pain, Neither EAC Discharge Neck: Yes Supple, No Adenopathy Lungs: Yes Good Air Exchange, No Wheezes, No Ronchi, No Stridor Neurologic: Alert and oriented, no deficits. Musculoskeletal: Unremarkable. ED Medical Decision Making - Medical Decision Making UVULA ENLARGED AND RED NO EXUDATES STREP NEG ABC INTACT CONTROLLING SECRETIONS NO ABSCESS NO FEVER OR CHILLS MEDICATED DC HOME WITH DC PLAN OF CARE AND PCP FOLLOW UP - Differential Diagnosis SIMPLE URI Critical care attestation.: If time is entered above; I have spent that time in minutes in the direct care of this critically ill patient, excluding procedure time. ED Disposition Clinical Impression: Uvulitis Disposition: DC-01 TO HOME OR SELFCARE Is pt being admited?: No Does the pt Need Aspirin: No Condition: Stable Instructions: Uvulitis (ED) Additional Instructions: MEDS ORDERED MOTRIN OR TYLENOL FOR PAIN FOLLOW UP WITH PCP Prescriptions: predniSONE [Deltasone] 20 mg PO DAILY #5 tablet Amoxicillin [Trimox CAP] 500 mg PO BID #20 capsule Referrals: REGINALD CHESTER MD [Staff Physician] - 3-5 Days Time of Disposition: 12:01
[2019-04-07 12:34] VITALS: BP 161/92
== END 2019-04-07 12:34 | disposition home or self-care (01) ==
LOC: ED 11:31
DX: K12.2 Cellulitis and abscess of mouth (principal); E11.9 Type 2 diabetes mellitus without complications; Z79.84 Long term (current) use of oral hypoglycemic drugs; Z79.899 Other long term (current) drug therapy
CPT/HCPCS: 87116; 87430; 96372; 99283; J1100

== ENCOUNTER 2020-04-01 21:02 | Emergency (ER) | payer OTHER ==
[2020-04-01] MEDS ORDERED: ACETAMINOPHEN 325 MG TAB PO ONE (23:51)
[2020-04-02] MEDS ORDERED: IBUPROFEN 600 MG TAB PO ONE (02:07)
--- NOTE | 2020-04-02 02:10 | Emergency Department Report ---
ED Headache HPI - General Chief Complaint: Headache Stated Complaint: HEADACHE Time Seen by Provider: 04/02/20 01:26 - History of Present Illness Initial Comments: 49-year-old -[place] female presents to the emergency room complaining of headache and left facial pressure x1 week. Patient states that she has been taking Claritin and Sudafed and Flonase but not helping much. Patient denies any smoking of cigarettes. Patient reports that the medication that was given to her in triage she has helped some. It appears that she was given acetaminophen 650 mg. Patient reports that she is seen at [facility] and recently was seen 3 weeks ago blood pressure was fine at that time. Patient denies any new weaknesses no nausea no vomiting no photophobia. She reports her headache is located in occipital area. She denies any head injury. Timing/Duration: 1 week Quality: moderate Head Injury Location: occipital Associated Symptoms: denies symptoms Allergies/Adverse Reactions: Allergies codeine Allergy (Verified 04/07/19 11:32) Nausea Home Medications: Ambulatory Orders glipiZIDE [glipiZIDE ER] 5 mg PO QAM #30 tab.er.24 11/30/17 metFORMIN [Glucophage] 1,000 mg PO BID 30 Days tablet 11/30/17 Amoxicillin 500 mg PO BID #20 capsule 07/21/18 methylPREDNISolone [Medrol] 4 mg PO DAILY #1 tab.ds.pk 07/21/18 Ibuprofen [Motrin] 600 mg PO Q8H PRN #20 tablet 10/18/18 Amoxicillin [Trimox CAP] 500 mg PO BID #20 capsule 04/07/19 predniSONE [Deltasone] 20 mg PO DAILY #5 tablet 04/07/19 Butalb/Acetaminophen/Caffeine [Fioricet 50-300-40 mg CAP] 1 cap PO Q6HR PRN #10 cap 04/02/20 ED Review of Systems ROS: Stated complaint: HEADACHE Other details as noted in HPI ED Past Medical Hx - Past Medical History Previous Medical History?: Yes Hx Hypertension: Yes Hx Congestive Heart Failure: No Hx Diabetes: Yes Hx Sickle Cell Disease: No Hx Asthma: No Hx COPD: No - Surgical History Past Surgical History?: Yes Hx Coronary Stent: Yes Additional Surgical History: heart cath - Social History Smoking Status: Never Smoker Substance Use Type: None - Medications Home Medications: Home Medications Medication Instructions Recorded Confirmed Last Taken Type glipiZIDE [glipiZIDE ER] 5 mg PO QAM #30 tab.er.24 11/30/17 Unknown Rx metFORMIN [Glucophage] 1,000 mg PO BID 30 Days tablet 11/30/17 Unknown Rx Amoxicillin 500 mg PO BID #20 capsule 07/21/18 Unknown Rx methylPREDNISolone [Medrol] 4 mg PO DAILY #1 tab.ds.pk 07/21/18 Unknown Rx Ibuprofen [Motrin] 600 mg PO Q8H PRN #20 tablet 10/18/18 Unknown Rx Amoxicillin [Trimox CAP] 500 mg PO BID #20 capsule 04/07/19 Unknown Rx predniSONE [Deltasone] 20 mg PO DAILY #5 tablet 04/07/19 Unknown Rx Butalb/Acetaminophen/Caffeine 1 cap PO Q6HR PRN #10 cap 04/02/20 Unknown Rx [Fioricet 50-300-40 mg CAP] ED Physical Exam - General Limitations: No Limitations - ENT ENT exam: Present: mucous membranes moist - Neurological Exam Neurological exam: Present: alert, oriented X3, normal gait - Expanded Neurological Exam Expanded Cranial nerves: EOM's Intact: Normal, Gag Reflex: Normal, Tongue Deviation: Normal, Nystagmus: Normal, Facial Sensation: Normal, Facial Palsy with Forehead Movement: Normal, Facial Palsy without Forehead Movement: Normal Cerebellar function: Finger to Nose: Normal, Heel to Little: Normal, Romberg: Normal Upper motor neuron: Davon Neglect: Normal, Pronator Drift: Normal, Sensory Extinction: Normal Sensory exam: Upper Extremity Light Touch: Normal, Upper Extremity Pin Prick: Normal, Upper Extremity Temperature: Normal, UE 2 Point Discrimination: Normal, Lower Extremity Light Touch: Normal, Lower Extremity Pin Prick: Normal, Lower Extremity Temperature: Normal, LE 2 Point Discrimination: Normal Motor strength exam: RUE: 4, LUE: 4, RLE: 4, LLE: 4 Best Eye Response ([place]): (4) open spontaneously Best Motor Response ([place]): (6) obeys commands Best Verbal Response ([place]): (5) oriented Catia Total: 15 - Psychiatric Psychiatric exam: Present: normal affect, normal mood - Skin Skin exam: Present: warm, dry, intact, normal color. Absent: rash ED Course Vital Signs 04/01/20 21:17 Temperature 98.8 F Pulse Rate 87 Respiratory 18 Rate Blood Pressure 162/91 O2 Sat by Pulse 100 Oximetry ED Medical Decision Making - Medical Decision Making 49-year-old -[place] female presents to the emergency room complaining of headache and left facial pressure x1 week. Patient states that she has been taking Claritin and Sudafed and Flonase but not helping much. Patient denies any smoking of cigarettes. Patient reports that the medication that was given to her in triage she has helped some. It appears that she was given acetaminophen 650 mg. Patient reports that she is seen at [facility] and recently was seen 3 weeks ago blood pressure was fine at that time. Patient denies any new weaknesses no nausea no vomiting no photophobia. She reports her headache is located in occipital area. She denies any head injury. Acetaminophen has improved with her headache. We will give her ibuprofen and encourage patient to take Fioricet increase her fluid intake and follow-up with her primary care provider. Critical care attestation.: If time is entered above; I have spent that time in minutes in the direct care of this critically ill patient, excluding procedure time. ED Disposition Clinical Impression: Acute nonintractable headache Disposition: DC-01 TO HOME OR SELFCARE Is pt being admited?: No Does the pt Need Aspirin: No Condition: Stable Instructions: Aspirin/Caffeine (By mouth) Additional Instructions: Please take headache medication. You can also try [id number] Excedrin migraine as that tends to help with headaches. I encourage you to increase your water intake watch her sodium intake. Follow-up with your primary care provider. Prescriptions: Butalb/Acetaminophen/Caffeine [Fioricet 50-300-40 mg CAP] 1 cap PO Q6HR PRN #10 cap PRN Reason: Headache Referrals: PRIMARY CAREMD [Primary Care Provider] - 3-5 Days [facility] [Provider Group] - 3-5 Days
[2020-04-02 03:08] VITALS: BP 147/81
== END 2020-04-02 02:41 | disposition home or self-care (01) ==
LOC: ED 21:02
DX: R51 Headache (principal); I10 Essential (primary) hypertension; E11.9 Type 2 diabetes mellitus without complications; Z98.890 Other specified postprocedural states; Z79.1 Long term (current) use of non-steroidal anti-inflammatories (NSAID); Z79.2 Long term (current) use of antibiotics; Z79.84 Long term (current) use of oral hypoglycemic drugs; Z79.899 Other long term (current) drug therapy; Z88.8 Allergy status to other drugs, medicaments and biological substances
CPT/HCPCS: 99282

== ENCOUNTER 2020-12-12 16:16 | Emergency (ER) | payer OTHER ==
[2020-12-12 17:21] VITALS: BP 143/89
[2020-12-12 18:03] LABS: Bilirubin,Urine NEG (Negative); Blood,Urine SM (Negative); Color,Urine Straw (Yellow); Mucus,Urine FEW /HPF; Protein,Urine <15 mg/dL mg/dL (Negative); Urobilinogen,Urine < 2.0 mg/dL (<2.0)
--- NOTE | 2020-12-13 00:26 | Emergency Department Report ---
ED Female HPI - General Chief complaint: Urogenital-Female Stated complaint: FREQUENT URINATE Time Seen by Provider: 12/12/20 22:21 Source: patient Mode of arrival: Ambulatory Limitations: No Limitations - History of Present Illness Initial comments: Patient 50-year-old -Polish female with a history of diabetes type 2 who presents for urinary frequency and urgency x2 days. There is some pain that radiates to right flank there is no hematuria there is no fever no chills no nausea or vomiting. Patient denies history of renal stones. Symptoms are exacerbated by voiding. Symptoms are relieved by nothing tried. Patient advises no concern for STI. MD Complaint: dysuria - Related Data Previous Rx's Medication Instructions Recorded Last Taken Type glipiZIDE [glipiZIDE ER] 5 mg PO QAM #30 tab.er.24 11/30/17 Unknown Rx metFORMIN [Glucophage] 1,000 mg PO BID 30 Days tablet 11/30/17 Unknown Rx Amoxicillin 500 mg PO BID #20 capsule 07/21/18 Unknown Rx methylPREDNISolone [Medrol] 4 mg PO DAILY #1 tab.ds.pk 07/21/18 Unknown Rx Ibuprofen [Motrin] 600 mg PO Q8H PRN #20 tablet 10/18/18 Unknown Rx Amoxicillin [Trimox CAP] 500 mg PO BID #20 capsule 04/07/19 Unknown Rx predniSONE [Deltasone] 20 mg PO DAILY #5 tablet 04/07/19 Unknown Rx Butalb/Acetaminophen/Caffeine 1 cap PO Q6HR PRN #10 cap 04/02/20 Unknown Rx [Fioricet 50-300-40 mg CAP] Nitrofurantoin [place]/M-Cryst 100 mg PO BID 7 Days #14 capsule 12/13/20 Unknown Rx [Macrobid CAP] Allergies Allergy/AdvReac Type Severity Reaction Status Date / Time codeine Allergy Nausea Verified 04/07/19 11:32 ED Review of Systems ROS: Stated complaint: FREQUENT URINATE Other details as noted in HPI Constitutional: denies: chills, fever Eyes: denies: eye pain, eye discharge, vision change ENT: denies: ear pain, throat pain Respiratory: denies: cough, shortness of breath, wheezing Cardiovascular: denies: chest pain, palpitations Endocrine: no symptoms reported Gastrointestinal: denies: abdominal pain, nausea, vomiting, diarrhea Genitourinary: urgency, dysuria, frequency, hematuria Musculoskeletal: other. denies: back pain, joint swelling, arthralgia Skin: denies: rash, lesions Neurological: denies: headache, weakness, paresthesias Psychiatric: denies: anxiety, depression Hematological/Lymphatic: as per HPI ED Past Medical Hx - Past Medical History Previous Medical History?: Yes Hx Hypertension: Yes Hx Congestive Heart Failure: No Hx Diabetes: Yes Hx Sickle Cell Disease: No Hx Asthma: No Hx COPD: No - Surgical History Past Surgical History?: Yes Hx Coronary Stent: Yes Additional Surgical History: heart cath - Social History Smoking Status: Never Smoker Substance Use Type: None - Medications Home Medications: Home Medications Medication Instructions Recorded Confirmed Last Taken Type glipiZIDE [glipiZIDE ER] 5 mg PO QAM #30 tab.er.24 11/30/17 Unknown Rx metFORMIN [Glucophage] 1,000 mg PO BID 30 Days tablet 11/30/17 Unknown Rx Amoxicillin 500 mg PO BID #20 capsule 07/21/18 Unknown Rx methylPREDNISolone [Medrol] 4 mg PO DAILY #1 tab.ds.pk 07/21/18 Unknown Rx Ibuprofen [Motrin] 600 mg PO Q8H PRN #20 tablet 10/18/18 Unknown Rx Amoxicillin [Trimox CAP] 500 mg PO BID #20 capsule 04/07/19 Unknown Rx predniSONE [Deltasone] 20 mg PO DAILY #5 tablet 04/07/19 Unknown Rx Butalb/Acetaminophen/Caffeine 1 cap PO Q6HR PRN #10 cap 04/02/20 Unknown Rx [Fioricet 50-300-40 mg CAP] Nitrofurantoin [place]/M-Cryst 100 mg PO BID 7 Days #14 capsule 12/13/20 Unknown Rx [Macrobid CAP] ED Physical Exam - General Limitations: No Limitations General appearance: alert, in no apparent distress - Head Head exam: Present: atraumatic, normocephalic - Eye Eye exam: Present: normal appearance, EOMI Pupils: Present: normal accommodation - ENT ENT exam: Present: mucous membranes moist - Neck Neck exam: Present: normal inspection, full ROM. Absent: tenderness - Respiratory Respiratory exam: Present: normal lung sounds bilaterally. Absent: respiratory distress, wheezes, stridor - Cardiovascular Cardiovascular Exam: Present: regular rate, normal rhythm, normal heart sounds. Absent: systolic murmur, diastolic murmur, rubs, gallop - GI/Abdominal GI/Abdominal exam: Present: soft, normal bowel sounds. Absent: distended, tenderness, guarding, rebound, rigid, bruit, hernia - Rectal Rectal exam: Present: deferred - Extremities Exam Extremities exam: Present: normal inspection, full ROM. Absent: tenderness - Back Exam Back exam: Present: normal inspection, full ROM. Absent: CVA tenderness (R), CVA tenderness (L), vertebral tenderness, rash noted - Neurological Exam Neurological exam: Present: alert, oriented X3 - Psychiatric Psychiatric exam: Present: normal affect, normal mood. Absent: anxious - Skin Skin exam: Present: warm, dry, intact, normal color. Absent: rash ED Course Vital Signs 12/12/20 17:18 Temperature 98.7 F Pulse Rate 98 H Respiratory 18 Rate Blood Pressure 143/89 O2 Sat by Pulse 99 Oximetry ED Medical Decision Making - Medical Decision Making UA positive for leukocytes WBCs and bacteria will treat for UTI. Critical care attestation.: If time is entered above; I have spent that time in minutes in the direct care of this critically ill patient, excluding procedure time. ED Disposition Clinical Impression: UTI (urinary tract infection) Qualifiers: Urinary tract infection type: acute cystitis Hematuria presence: without hematuria Qualified Code(s): N30.00 - Acute cystitis without hematuria Disposition: DC- TO HOME OR SELFCARE Is pt being admited?: No Does the pt Need Aspirin: No Condition: Stable Instructions: Urinary Tract Infection, Adult, [id number] Additional Instructions: Take medications as prescribed, follow up with pcp in 2-3 days Prescriptions: Nitrofurantoin [place]/M-Cryst [Macrobid CAP] 100 mg PO BID 7 Days #14 capsule Referrals: ANGELY CARNEY [Other] - 3-5 Days Forms: Work/School Release Form(ED) Time of Disposition: 00:29
== END 2020-12-13 00:35 | disposition home or self-care (01) ==
LOC: ED 16:16
DX: N39.0 Urinary tract infection, site not specified (principal); I10 Essential (primary) hypertension; E11.9 Type 2 diabetes mellitus without complications; Z98.890 Other specified postprocedural states; Z79.84 Long term (current) use of oral hypoglycemic drugs; Z79.899 Other long term (current) drug therapy; Z88.8 Allergy status to other drugs, medicaments and biological substances
CPT/HCPCS: 81001; 82962; 87086

== ENCOUNTER 2020-12-17 17:19 | Emergency (ER) | payer OTHER ==
[2020-12-17 18:53] VITALS: BP 145/70
[2020-12-17] MEDS ORDERED: TETANUS,DIPH,PERTUSS(ACELL) VACCINE 0.5 ML SYRINGE IM ONE (19:45)
[2020-12-17] MEDS ORDERED: NEOMY 3.5 MG/BACIT 400 UNITS/POLY B 5000 UNITS/GM OINT PACKET TP ONE (19:45)
[2020-12-17] MEDS ORDERED: IBUPROFEN 600 MG TAB PO ONE (19:45)
[2020-12-17] MEDS ORDERED: ONDANSETRON 4 MG ODT TAB PO ONE (19:45)
--- NOTE | 2020-12-17 20:15 | Emergency Department Report ---
- General Chief Complaint: Wound/Laceration Stated Complaint: LT HAND FINGER LAC Source: patient Mode of arrival: Ambulatory Limitations: No Limitations - History of Present Illness Initial Comments: Patient is a 50-year-old -[place] female with a history of hypertension, [id number] diabetes, coronary artery disease s/p PTCA stents and who presents to the ED with complaint of acute onset persistent severe painful bleeding distal left index finger laceration with partial nail avulsion after she accidentally sliced the distal part of her left index finger with a knife while cutting vegetables at home about 2 hours ago. Patient states that the bleeding is not well controlled and that she has soaked several paper towels with blood due to uncontrolled bleeding. Patient states that the pain is worse with any palpation of the distal left index finger. Patient states that she is not up-to-date with all her tetanus vaccinations and would like to have one while in the ED. Patient denies numbness and tingling or weakness of left hand or left index finger, nausea, vomiting, lightheadedness, dizziness, syncope, chest pain or shortness of breath. -: Sudden, hour(s) (2) Location: other (Distal left index finger laceration) Extremity Location: Left: Hand (distal) Place: home (index finger ) Patient Tetanus UTD: No (Given during this visit) Context: accidental, sharp object use Associated Symptoms: pain. denies: loss of feeling/numbness, suspect foreign body present, unable to move injured part, weakness followed by dizziness, nausea/vomiting, fever - Related Data Previous Rx's Medication Instructions Recorded Last Taken Type glipiZIDE [glipiZIDE ER] 5 mg PO QAM #30 tab.er.24 11/30/17 Unknown Rx metFORMIN [Glucophage] 1,000 mg PO BID 30 Days tablet 11/30/17 Unknown Rx Amoxicillin 500 mg PO BID #20 capsule 07/21/18 Unknown Rx methylPREDNISolone [Medrol] 4 mg PO DAILY #1 tab.ds.pk 07/21/18 Unknown Rx Ibuprofen [Motrin] 600 mg PO Q8H PRN #20 tablet 10/18/18 Unknown Rx Amoxicillin [Trimox CAP] 500 mg PO BID #20 capsule 04/07/19 Unknown Rx predniSONE [Deltasone] 20 mg PO DAILY #5 tablet 04/07/19 Unknown Rx Butalb/Acetaminophen/Caffeine 1 cap PO Q6HR PRN #10 cap 04/02/20 Unknown Rx [Fioricet 50-300-40 mg CAP] Nitrofurantoin [place]/M-Cryst 100 mg PO BID 7 Days #14 capsule 12/13/20 Unknown Rx [Macrobid CAP] Fluconazole [Diflucan TAB] 200 mg PO QDAY 1 Days #1 tablet 12/16/20 Unknown Rx Fluconazole [Diflucan TAB] 200 mg PO QDAY #3 tablet 12/17/20 Unknown Rx Ibuprofen [Motrin] 600 mg PO Q8H PRN #20 tablet 12/17/20 Unknown Rx Sulfamethoxazole/Trimethoprim 1 each PO Q12H #20 tablet 12/17/20 Unknown Rx [Bactrim DS TAB] Allergies Allergy/AdvReac Type Severity Reaction Status Date / Time codeine Allergy Nausea Verified 04/07/19 11:32 ED Review of Systems ROS: Stated complaint: LT HAND FINGER LAC Other details as noted in HPI Constitutional: denies: chills, fever Eyes: denies: eye pain, eye discharge, vision change ENT: denies: ear pain, throat pain Respiratory: denies: cough, shortness of breath, wheezing Cardiovascular: denies: chest pain, palpitations Endocrine: no symptoms reported Gastrointestinal: denies: abdominal pain, nausea, diarrhea Genitourinary: denies: urgency, dysuria, discharge Musculoskeletal: arthralgia (distal left index finger laceration and pain). denies: back pain, joint swelling Skin: other (Bleeding distal left index finger laceration). denies: rash, lesions Neurological: denies: headache, weakness, paresthesias Psychiatric: denies: anxiety, depression Hematological/Lymphatic: denies: easy bleeding, easy bruising ED Past Medical Hx - Past Medical History Previous Medical History?: Yes Hx Hypertension: Yes Hx Heart Attack/AMI: Yes Hx Congestive Heart Failure: No Hx Diabetes: Yes Hx Sickle Cell Disease: No Hx Asthma: No Hx COPD: No - Surgical History Hx Coronary Stent: Yes Additional Surgical History: heart cath - Social History Smoking Status: Never Smoker Substance Use Type: None - Medications Home Medications: Home Medications Medication Instructions Recorded Confirmed Last Taken Type glipiZIDE [glipiZIDE ER] 5 mg PO QAM #30 tab.er.24 11/30/17 Unknown Rx metFORMIN [Glucophage] 1,000 mg PO BID 30 Days tablet 11/30/17 Unknown Rx Amoxicillin 500 mg PO BID #20 capsule 07/21/18 Unknown Rx methylPREDNISolone [Medrol] 4 mg PO DAILY #1 tab.ds.pk 07/21/18 Unknown Rx Ibuprofen [Motrin] 600 mg PO Q8H PRN #20 tablet 10/18/18 Unknown Rx Amoxicillin [Trimox CAP] 500 mg PO BID #20 capsule 04/07/19 Unknown Rx predniSONE [Deltasone] 20 mg PO DAILY #5 tablet 04/07/19 Unknown Rx Butalb/Acetaminophen/Caffeine 1 cap PO Q6HR PRN #10 cap 04/02/20 Unknown Rx [Fioricet 50-300-40 mg CAP] Nitrofurantoin [place]/M-Cryst 100 mg PO BID 7 Days #14 capsule 12/13/20 Unknown Rx [Macrobid CAP] Fluconazole [Diflucan TAB] 200 mg PO QDAY 1 Days #1 tablet 12/16/20 Unknown Rx Fluconazole [Diflucan TAB] 200 mg PO QDAY #3 tablet 12/17/20 Unknown Rx Ibuprofen [Motrin] 600 mg PO Q8H PRN #20 tablet 12/17/20 Unknown Rx Sulfamethoxazole/Trimethoprim 1 each PO Q12H #20 tablet 12/17/20 Unknown Rx [Bactrim DS TAB] ED Physical Exam - General Limitations: No Limitations General appearance: alert, in no apparent distress - Head Head exam: Present: atraumatic, normocephalic, normal inspection - Eye Eye exam: Present: normal appearance, PERRL, EOMI Pupils: Present: normal accommodation - ENT ENT exam: Present: normal exam, normal orophraynx, mucous membranes moist, TM's normal bilaterally, normal external ear exam - Neck Neck exam: Present: normal inspection, full ROM - Respiratory Respiratory exam: Present: normal lung sounds bilaterally. Absent: respiratory distress, wheezes, rales, rhonchi, stridor, chest wall tenderness, accessory muscle use, decreased breath sounds, prolonged expiratory - Cardiovascular Cardiovascular Exam: Present: regular rate, normal rhythm, normal heart sounds. Absent: systolic murmur, diastolic murmur, rubs, gallop - GI/Abdominal GI/Abdominal exam: Present: soft, normal bowel sounds. Absent: tenderness, guarding, hyperactive bowel sounds, hypoactive bowel sounds - Extremities Exam Extremities exam: Present: normal inspection, full ROM, tenderness (Palpable distal left index finger laceration with patial nail avulsion), normal capillary refill. Absent: joint swelling, calf tenderness - Back Exam Back exam: Present: normal inspection, full ROM. Absent: tenderness, CVA tenderness (R), muscle spasm, paraspinal tenderness, vertebral tenderness - Neurological Exam Neurological exam: Present: alert, oriented X3, CN II-XII intact, normal gait, reflexes normal - Psychiatric Psychiatric exam: Present: normal affect, normal mood - Skin Skin exam: Present: warm, dry, intact, normal color, other (Bleeding distal dorsal left index finger laceration with partial nail avulsion). Absent: rash ED Course Vital Signs 12/17/20 18:52 Temperature 98 F Pulse Rate 74 Respiratory 18 Rate Blood Pressure 145/70 [Right] O2 Sat by Pulse 100 Oximetry ED Medical Decision Making - Medical Decision Making There is is a 50-year-old -[place] female with a history of hypertension, [id number] diabetes, coronary artery disease s/p PTCA stents and who presents to the ED with complaint of acute onset persistent severe painful bleeding distal left index finger laceration with partial nail avulsion after she accidentally sliced the distal part of her left index finger with a knife while cutting vegetables at home about 2 hours ago. Patient states that the bleeding is not well controlled and that she has soaked several paper towels with blood due to uncontrolled bleeding. Patient states that the pain is worse with any palpation of the distal left index finger. Patient states that she is not up-to-date with all her tetanus vaccinations and would like to have one while in the ED. in the ED, patient is alert and oriented x3 and is not in any distress, patient is hemodynamically stable but appears to be in pain. Patient was treated for pain in the ED and the distal left index finger bleeding laceration was cleaned extensively. Since there was no flap of skin remaining, the wound was dressed appropriately after application of Neosporin ointment onto the wound followed by application of Surgicel gauze and 2 x 2 gauze was around it. Patient also received tetanus vaccinations in the ED during the visit. On reevaluation, patient's pain is well controlled medications, bleeding is well controlled and the patient was discharged home on prophylactic antibiotics and pain medications. Patient was advised to return to the ED immediately if symptoms get worse. Patient was also advised to follow-up with her primary care physician in 7 to 10 days for reevaluation. - Differential Diagnosis Finger laceration; Puncture wound; Finger injury Critical care attestation.: If time is entered above; I have spent that time in minutes in the direct care of this critically ill patient, excluding procedure time. ED Disposition Clinical Impression: Laceration of left index finger w/o foreign body with damage to nail Qualifiers: Encounter type: initial encounter Qualified Code(s): S61.311A - Laceration without foreign body of left index finger with damage to nail, initial encounter Disposition: DC- TO HOME OR SELFCARE Is pt being admited?: No Does the pt Need Aspirin: No Condition: Stable Instructions: Laceration Care, Adult, [id number], Nonsutured Laceration Care Additional Instructions: Take medication with food, drink plenty of fluids and follow-up with your primary care physician in 7 to 10 days for reevaluation. Return to the ED immediately if symptoms get worse. Prescriptions: Sulfamethoxazole/Trimethoprim [Bactrim DS TAB] 1 each PO Q12H #20 tablet Fluconazole [Diflucan TAB] 200 mg PO QDAY #3 tablet Ibuprofen [Motrin] 600 mg PO Q8H PRN #20 tablet PRN Reason: Pain Referrals: [facility] [Provider Group] - 3-5 Days Forms: Work/School Release Form(ED) Time of Disposition: 20:17 Print Language: STATELESS
[2020-12-17] MEDS: HYDROcodone/ACETAMINOPHEN 5-325 MG TAB PO ONE ×2 (20:29→20:30)
[2020-12-17] MEDS ORDERED: SULFAMETHOXAZOLE/TRIMETHOPRIM 800/160MG DS TAB PO ONE (20:41)
== END 2020-12-17 21:58 | disposition home or self-care (01) ==
LOC: ED 17:19
DX: S61.311A Laceration without foreign body of left index finger with damage to nail, initial encounter (principal); I11.0 Hypertensive heart disease with heart failure; I50.9 Heart failure, unspecified; E11.9 Type 2 diabetes mellitus without complications; Z88.5 Allergy status to narcotic agent; Z79.899 Other long term (current) drug therapy; W26.0XXA Contact with knife, initial encounter; Y93.89 Activity, other specified; Y92.89 Other specified places as the place of occurrence of the external cause; Y99.8 Other external cause status
CPT/HCPCS: 90471; 90715; 99283; A6250; Q0162